=== PATIENT | male | born 1945 | race Caucasian/White ===

== ENCOUNTER 2018-07-10 23:47 | Inpatient (IN) ==
[2018-07-11] MEDS ORDERED: ROCEPHIN 1 GM in NS 50 ML IV ONE (01:22)
[2018-07-11] MEDS ORDERED: DUONEB (A & A) INH ONE (01:22)
[2018-07-11] MEDS ORDERED: ZITHROMAX 500 MG/NS 500 MG/250 ML IVPB IV ONE (01:22)
[2018-07-11] MEDS ORDERED: LASIX IV ONE (01:22)
--- NOTE | 2018-07-11 01:41 | PROVIDER DOCUMENTATION ---
This chart was entered by Raoul Boykin Scribe, acting as scribe for Deann Rodriguez MD. HPI-Respiratory General - General Chief Complaint: Shortness of Breath Stated Complaint: DIFFICULTY BREATHING Time Seen by Provider: 07/10/18 23:53 Source: patient Allergies/Adverse Reactions: Patient Allergies Allergy/AdvReac Type Severity Reaction Status Date / Time Iodinated Contrast- Oral and Allergy Unknown RASH Verified 08/14/17 02:55 IV Dye Home Medications: Home Medication List Medication Instructions Recorded Confirmed Last Taken Type Aspirin 81 mg PO DAILY 08/14/13 08/14/17 08/14/13 08:30 History Atenolol 25 mg PO DAILY 08/14/13 08/14/17 08/14/13 08:30 History Atorvastatin Calcium [Lipitor] 20 mg PO DAILY 08/14/13 08/14/17 08/14/13 08:30 History Baclofen [Lioresal] 10 mg PO TID PRN 08/14/13 08/14/13 08/14/13 08:30 History Docusate Calcium [Stool Softener] 240 mg PO BID 08/14/13 08/14/17 08/14/13 08: 30 History Isosorbide Mononitrate [Isosorbide 30 mg PO HS 08/14/13 08/14/17 08/13/13 20:00 History Mononitrate ER] Levothyroxine [Synthroid] 25 microgm PO DAILY 08/14/13 08/14/17 08/13/13 20:00 History Lorazepam [Ativan] 0.5 mg PO TID 08/14/13 08/14/13 08/13/13 20:00 History Nitroglycerin [Nitroquick] 0.4 mg SL PRN PRN 08/14/13 08/14/17 08/14/13 14:00 History Omeprazole 20 mg PO BID 08/14/13 08/14/13 08/14/13 08:30 History Paroxetine HCl [Paxil] 40 mg PO DAILY 08/14/13 08/14/13 08/13/13 20:00 History Temazepam [Restoril] 30 mg PO HS 08/14/13 08/14/13 08/13/13 20:00 History Hydrocodone/APAP 7.5 mg/325 mg 1 each PO BID PRN PRN #60 tablet 08/17/13 Unknown Rx [[place]-7.5] LISINOpril [Prinivil] 10 mg PO QAM #0 tablet 08/17/13 08/14/17 Unknown Rx Ranolazine E.r. [Ranexa] 500 mg PO Q12H #0 tablet 08/17/13 Unknown Rx - History of Present Illness-Resp Nature of Presenting Problem: 73 yom presents to ed with cc of sob for past 4 days with chills, headache, cough and fever worsening. EMS reports pt O2 sat on arrival was 85 room air. CONTEH frontal 1010 not worse of life. Reports chest heaviness two days ago that resolved with nitro. Hx of bypasses and NE. Quality of Pain: reports: none Severity in ED: reports: moderate Onset/Duration: reports: 4 days ago Timing: reports: still present Review of Systems - Adult - REVIEW OF SYSTEMS - ADULT Constitutional: reports: chills, fever. denies: fatique, weight gain, weight loss Eyes: reports: no symptoms reported Ears, Nose, Mouth & Throat: denies: ear pain, sinus problem, throat pain Cardiovascular: denies: chest pain, irregular heart rate, orthopnea, syncope Respiratory: reports: cough, shortness of breath. denies: pleurisy, wheezing Gastrointestinal: denies: abdominal pain, diarrhea, nausea, vomiting Genitourinary: denies: dysuria, flank pain, frequent UTI's, hematuria, hesitency , urgency Musculoskeletal: denies: bone pain, joint pain, joint swelling, neck pain Integumentary: reports: no symptoms reported Neurological: reports: no symptoms reported Psychiatric: reports: no symptoms reported Endocrine: reports: no symptoms reported Hematologic/Lymphatic: reports: no symptoms reported Allergic/Immunologic: reports: no symptoms reported All Other Systems: Reviewed and Negative Past History - Adult - PAST MEDICAL HISTORY-ADULT Review of Records: reports: Nursing Assessment Review, Medications Reviewed Major Childhood Illnesses: reports: denies history Cardiovascular: reports: cardiac disease, angina, HTN Respiratory: reports: COPD Gastrointestinal: reports: denies history Musculoskeletal: reports: arthritis Neurological: reports: denies history - IMMUNIZATION STATUS Childhood Immunizations: See Nurse Assessment Flu Vaccine: See Nurse Assessment - SOCIAL HISTORY Smoking: other (former) Substance Use: none/never Physical Exam-General - PHYSICAL EXAM-ADULT Initial Vital Signs Reviewed: Yes - CONSTITUTIONAL General Appearance: appears well, alert, mild distress - EYES Eyes: PERRL/EOMI, pink conjunctivae - HEAD, EARS, NOSE, MOUTH & THROAT HENMT: moist mucous membranes, TMs normal, pharynx normal - NECK Neck: non-tender, full range of motion, supple, normal inspection - RESPIRATORY Respiratory: chest non-tender, no pleuratic chest pain, respiratory distress ( O2 dropped down to 83 room air,...pt was placed on 4 lmp NC), crackles ( bilateral bases) - CARDIOVASCULAR Cardiovascular: regular rate, rhythm - GASTROINTESTINAL (ABDOMEN) Abdominal Exam: non tender, soft, no organomegaly, no pulsatile mass - MUSCULOSKELETAL Extremity: normal range of motion, non-tender, normal gait. negative: pedal edema, swelling, tenderness - SKIN Integumentary: normal color, normal turgor, warm/dry - NEUROLOGIC Neurologic: grossly normal - PSYCHIATRIC Psych/Mental Status: normal mood/affect, normal thought content, normal thought process, oriented x 3 Progress - PLAN OF CARE/RESULTS Progress/Plan/Lab Results: Vital Signs - 8 hr 07/10/18 23:48 07/10/18 23:56 07/11/18 01:34 Temperature 100.1 F H Pulse Rate 83 81 72 Respiratory Rate 24 20 20 Blood Pressure 148/86 148/86 O2 Sat by Pulse Oximetry 93 L 94 L 92 L Laboratory Results - last 24 hr 07/11/18 00:36 Troponin T < 0.010 Orders Category Date Time Status Saline Loc NOW Care 07/11/18 00:09 Active CHEST-PORTABLE [RAD] Stat Exams 07/11/18 00:09 Taken BLOOD CULTURE [BLDCUL] Stat Lab 07/11/18 00:09 Ordered CBC WITH DIFF [HEME] Stat Lab 07/11/18 00:36 Results COMPREHENSIVE METABOLIC PANEL [CHEM] Stat Lab 07/11/18 00:36 Received INFLUENZA SCREEN A/B Stat Lab 07/11/18 01:26 Uncollected LACTATE, PLASMA [CHEM] Stat Lab 07/11/18 00:36 Received PRO B-NATRIURETIC PEPTIDE Stat Lab 07/11/18 00:36 Received SPUTUM CULTURE WITH GRAM STAIN [RM] Routine Lab 07/11/18 00:49 Ordered TROPONIN T Stat Lab 07/11/18 00:36 Completed Albuterol 2.5MG/Ipratrop 0.5MG [Duoneb (A & A)] Med 07/11/18 01:22 Discontinued 3 ml INH NOW ONE Azithromycin 500 mg/Ns [Zithromax 500 mg/Ns] Med 07/11/18 01:22 Active 500 mg in 250 ml IV NOW CefTRIAXONE [Rocephin] 1 gm Med 07/11/18 01:22 Active 0.9% Sodium Chloride Inj [Ns] 50 ml IV NOW Furosemide [Lasix] Med 07/11/18 01:22 Discontinued 20 mg IV NOW ONE Aerosol Treatments Routine Oth 07/11/18 01:23 Completed Aerosol Treatments Stat Oth 07/11/18 01:23 Completed Pulse Oximetry Stat Oth 07/11/18 00:09 Active EKG [EKG] Stat Ther 07/11/18 00:10 Ordered Result Diagrams: 07/11/18 00:36 - EKG 1 Time of EKG reading by physician:: 23:56 EKG Read and Signed by:: Salinas Segundo EKG Interpretation (*Must complete 3 of following elements*): Abnormal (lafb) Rate: 81 Rhythm: sinus with sinus arrhythmia [place]: normal QRS: PVC's (occasiona) IA Interval: normal - XRAY 1 XRAY: Bilateral XRAY Study: Chest Impression: Abnormal (bilateral pna and vascular congestion- dr clinton) - CONSULTS/PCP/HOSPITALIST Notification #1 *Consult/PCP/Hospitalist*: Dr. Laguna Time Discussed: 01:40 Consult Disposition: Admit (Accepted without labs being back) Departure - Departure Date of Disposition Decision: 07/11/18 Time of Disposition Decision: 01:40 DIAGNOSIS: Dyspnea, Pneumonia, CHF (congestive heart failure) Disposition: ADMITTED INPATIENT 09 Certified Medical Emergency: Emergent Condition: Stable Referrals and Follow-Ups: UNKNOWN, [Primary Care Provider] - - Critical Care Note This patient required my direct & personal management of CC.: Yes Total Time (mins): 30 Critical Care Statement: This patient required my direct personal management to treat or rule out processes, the absence of which, could potentiallly result in sudden, clinically significant life or limb threatening deterioration. Attestation - Physician/ OXANA Attestation Patient care was provided by Advanced Practice Provider:: No The physician spent face to face time with patient:: Yes Advanced Practice Provider documentation review:: Supervising physician onsite and consulted in the evaluation and care of this patient. The physician did have a face to face encounter with the patient. This chart was documented by the indicated scribe, (Raoul Boykin Scribe) and accurately reflects the services I performed and decisions made by me, Deann Rodriguez MD, as attested by the provider's signature.
[2018-07-11 01:54] LABS: HEMATOCRIT 38.7 % (42.0-52.0); HEMOGLOBIN 12.9 g/dL (14.0-18.0); MCH 31.7 PG (27-31); MCHC 33.3 g/dL (33-37); MCV 95.1 FL (81-99); RBC 4.07 XMIL (4.7-6.1); WBC 12.61 X1000 (4.8-10.8)
[2018-07-11 01:56] LABS: BASO# 0.03 X1000 (0.0-0.2); BASO% 0.2 % (0.0-0.8); EOS# 0.24 X1000 (0.0-0.7); EOS% 1.9 % (0.0-10.0); IMM GRAN% 0.6 % (0.0-0.5); LYMPH# 1.47 X1000 (1.2-3.4); LYMPH% 11.7 % (20.5-51.1); MONO# 1.27 X1000 (0.11-0.59); MONO% 10.1 % (1.7-9.3); MPV 9.2 FL (7.4-10.4); NEUT# 9.53 X1000 (1.4-6.5); NEUT% 75.5 % (42.2-75.2); PLT 366 X1000 (130-400); RDW 12.8 % (11.5-14.5)
[2018-07-11 01:57] LABS: IMM GRAN# 0.07 X1000 (0.0-0.04)
[2018-07-11 02:22] LABS: AGAP 14; ALKALINE PHOSPHATASE 63 U/L (32-122); BUN 15 mg/dL (8-22); CALCIUM 8.5 mg/dL (8.8-10.2); CHLORIDE 100 mmol/L (98-107); COSMO 276; CREATININE 0.7 mg/dL (0.7-1.2); GLUCOSE 130 mg/dL (70-104); GOT 20 U/L (10-34); GPT 17 U/L (10-44); POTASSIUM 4.2 mmol/L (3.5-5.1); SODIUM 137 mmol/L (136-145); TCO2 23 mmol/L (25-35); TOTAL PROTEIN 7.4 g/dL (6.3-8.3)
[2018-07-11] MEDS ORDERED: TYLENOL PO ONE ×3 (02:28→19:43)
[2018-07-11 02:52] LABS: INFLUENZA A NEGATIVE (NEGATIVE); INFLUENZA B NEGATIVE (NEGATIVE)
--- NOTE | 2018-07-11 02:56 | EKG Report ---
Test Performed on : 07/10/2018 11:56:28 PM Test Reason : CP Blood Pressure : / mmHG Vent. Rate : 081 BPM Atrial Rate : 081 BPM P-R Int : 174 ms QRS Dur : 106 ms QT Int : 378 ms P-R-T Axes : -12 -53 070 degrees QTc Int : 439 ms Sinus rhythm. with sinus arrhythmia. with occasional premature ventricular complexes. Left anterior fascicular block Abnormal ECG When compared with ECG of 14-AUG-2017 05:24, premature ventricular complexes. are now present OR interval has decreased Vent. rate has increased BY 28 BPM T wave inversion no longer evident in Lateral leads Unconfirmed Result
--- NOTE | 2018-07-11 05:42 | Diag Imaging Result Doc PS360 ---
EXAM: CHEST-PORTABLE HISTORY: cough TECHNIQUE: Chest single view COMPARISON: 08/23/2017 FINDINGS: Poor inspiratory effort. Sternal wires and surgical clips are present. No cardiomegaly. No vascular distention. There may be tiny pleural effusions. There is basilar atelectasis with questionable underlying infiltrates. IMPRESSION: Basilar atelectasis with questionable tiny underlying infiltrates and tiny pleural effusions. Electronically signed by Junaid Zavala 07/11/2018 5:40 AM
[2018-07-11] MEDS ORDERED: FLU VACCINE IM ONE (12:04)
[2018-07-11] MEDS ORDERED: ZOFRAN IV PRN (15:22)
[2018-07-11] MEDS: DUONEB (A & A) INH PRN ×2 (19:25→23:59)
[2018-07-11] MEDS ORDERED: BUSPAR PO PRN (19:53)
[2018-07-11] MEDS: ZITHROMAX PO SCH (20:42)
[2018-07-12] MEDS: ROCEPHIN 1 GM in NS 50 ML IV SCH (01:20)
--- NOTE | 2018-07-12 02:17 | HISTORY AND PHYSICAL ---
CHIEF COMPLAINT: Shortness of breath. HISTORY OF PRESENT ILLNESS: This is a 73-year-old gentleman with a history of prostate cancer greater than 20 years ago, CAD status post coronary artery bypass graft with subsequent PCI, prior CVA and hypothyroid. He presents to the emergency room complaining of 4 days of increasing shortness of breath along with chills, headache, cough, and a fever with a maximum of 101.8 prior to coming to the emergency room. On EMS arrival he did have a room air saturation of 85%, which increased to 93% on 4 L nasal cannula. He did state that he had chest heaviness 2 days ago and it did resolve with nitroglycerin. He has had no further recurrence. Chest x-ray revealed bilateral basilar atelectasis with infiltrates. Blood cultures were obtained. He was given azithromycin and Rocephin, and he is being admitted for further evaluation and treatment. PAST MEDICAL HISTORY: Prostate cancer greater than 20 years ago, coronary artery disease status post coronary artery bypass graft in 2006 with subsequent PCI stents, hypothyroid, prior CVA. PAST SURGICAL HISTORY: Coronary bypass graft, knee surgery, and back surgery. SOCIAL HISTORY: He denies alcohol, tobacco, or illicit drug use. ALLERGIES: Iodine contrast oral and IV, which cause a rash. HOME MEDICATIONS: A list will be obtained by the nursing staff and once confirmed for accuracy we will review and start it as appropriate. REVIEW OF SYSTEMS: Discussed with the patient with pertinent positives stated in the HPI. He denied any syncope, dizziness, any palpitations, a productive cough, recent weight loss or weight gain, any nausea, vomiting, diarrhea, constipation, black or bloody vomitus or stools, hematuria, dysuria, frequency, urgency. PHYSICAL EXAMINATION: GENERAL: This is a 73-year-old gentleman who is sitting up in the bed in no distress. VITAL SIGNS: Blood pressure is 124/74, with a heart rate of 68, respirations 20, temperature is 97.7 degrees oral, with O2 saturation of 96%-97% on 4 L nasal cannula. EYES: Pupils are equal, round, and reactive to light. EOMs are intact. Sclerae are anicteric. HEENT: Head is normocephalic and atraumatic. Mucous membranes are moist. NECK: Supple with trachea midline. CARDIOVASCULAR: Regular rate and rhythm. S1 and S2 appreciated. He has no lower extremity edema with peripheral pulses palpable x4 extremities. PULMONARY: Breath sounds are diminished in the bases with no increased work of breathing noted. GASTROINTESTINAL: Abdomen is soft, nontender, and nondistended with bowel sounds in all 4 quadrants. GENITOURINARY: He has no CVA nor suprapubic tenderness. SKIN: Warm and dry. NEUROLOGIC: He is alert oriented x3. LABORATORY DATA: WBC is 12.6 with hemoglobin 12.9, hematocrit 38.7, and platelets of 366,000. Sodium is 137, potassium 4.2, BUN 15, creatinine 0.7 with a glucose of 130. Troponin is negative. Flu A and B are negative. Blood cultures are pending. Chest x-ray revealed bilateral basilar atelectasis with tiny underlying infiltrates and tiny pleural effusions. ASSESSMENT AND PLAN: 1. Bilateral lower lobe pneumonia. Blood cultures were obtained in the emergency room. He was given Rocephin and azithromycin which we will continue. Will give every 4 hours as needed. Obtain a sputum culture. Incentive spirometer. 2. Leukocytosis secondary to #1 as stated above. We will repeat labs in the morning. 3. Coronary artery disease. We will identify his home medications and continue these as is appropriate. 4. Hypothyroid. We will identify his medicines and continue. 5. History of prostate cancer. Aware. 6. For deep venous thrombosis prophylaxis we will use Lovenox, and for gastrointestinal prophylaxis omeprazole. Further treatments pending hospital course. Dictated by MICKIE Horton for Efraín Laguna MD This chart was documented by, MICKIE Horton and accurately reflects the services performed, treatment plan and medical decisions as attested by the providers signature Efraín Laguna MD. cc: MICKIE Horton MD
[2018-07-12] MEDS: DUONEB (A & A) INH PRN ×6 (03:22→23:25)
[2018-07-12] MEDS: TYLENOL PO PRN ×2 (03:41→12:32)
--- NOTE | 2018-07-12 04:24 | HISTORY AND PHYSICAL ---
ADDENDUM: Patient seen and examined by myself. Full note dictated and discussed with nurse practitioner. Patient presented to the hospital with a several day history of cough, congestion, and shortness of breath. Was noted to have a mild fever. Blood pressures were elevated. We will admit to the hospital, place on antibiotics, and we will follow. Please see full note. cc: Efraín Laguna MD
[2018-07-12 07:19] LABS: BASO# 0.02 X1000 (0.0-0.2); BASO% 0.2 % (0.0-0.8); EOS# 0.16 X1000 (0.0-0.7); EOS% 1.7 % (0.0-10.0); HEMATOCRIT 37.1 % (42.0-52.0); HEMOGLOBIN 12.4 g/dL (14.0-18.0); IMM GRAN# 0.03 X1000 (0.0-0.04); IMM GRAN% 0.3 % (0.0-0.5); LYMPH% 16.6 % (20.5-51.1); MCH 31.7 PG (27-31); MCHC 33.4 g/dL (33-37); MCV 94.9 FL (81-99); MONO# 1.26 X1000 (0.11-0.59); MONO% 13.1 % (1.7-9.3); MPV 9.3 FL (7.4-10.4); NEUT# 6.57 X1000 (1.4-6.5); NEUT% 68.1 % (42.2-75.2); PLT 363 X1000 (130-400); RBC 3.91 XMIL (4.7-6.1); RDW 12.8 % (11.5-14.5); WBC 9.64 X1000 (4.8-10.8)
[2018-07-12 07:46] LABS: AGAP 16; ALBUMIN 3.2 g/dL (3.5-5.0); ALKALINE PHOSPHATASE 64 U/L (32-122); BUN 10 mg/dL (8-22); CALCIUM 8.2 mg/dL (8.8-10.2); CHLORIDE 99 mmol/L (98-107); COSMO 280; CREATININE 0.6 mg/dL (0.7-1.2); ESTIMATED GFR > 60; GLUCOSE 126 mg/dL (70-104); GOT 21 U/L (10-34); GPT 20 U/L (10-44); MAGNESIUM 1.4 mg/dL (1.5-2.7); POTASSIUM 3.4 mmol/L (3.5-5.1); SODIUM 140 mmol/L (136-145); TCO2 25 mmol/L (25-35); TOTAL PROTEIN 6.8 g/dL (6.3-8.3)
[2018-07-12] MEDS ORDERED: MAGNESIUM SULFATE 2 GM/S.W.I. 2 GM/50 ML IVPB IV ONE (08:05)
[2018-07-12] MEDS: LOVENOX SUBQ SCH (08:41)
[2018-07-12] MEDS: PERCOCET-5 PO PRN ×2 (08:42→20:58)
[2018-07-12] MEDS: PAXIL PO SCH (08:42)
--- NOTE | 2018-07-12 18:33 | PROGRESS NOTE ---
DATE: 07/12/2018 SUBJECTIVE: The patient notes that he is feeling a little bit better. He states he is not quite back to his baseline. Denies any chest pains or palpitations. OBJECTIVE: Vital Signs: Temperature 98, pulse 82, respiratory 20, blood pressure 152/66. General: The patient is awake and alert, very pleasant to talk with. He is in minimal respiratory distress. HEENT: Normocephalic. Neck: Supple. CARDIOVASCULAR: Regular rate. Chest: Clear. Abdomen: Soft. Extremities: Moves all extremities. ASSESSMENT: 1. Bilateral pneumonia. 2. Leukocytosis. 3. Known coronary artery disease. 4. Hypothyroidism. 5. Hypomagnesemia. 6. Hypokalemia. PLAN: Will replace his potassium and magnesium. White count has improved. Will continue Rocephin and azithromycin. If he continues to improve, he may be able to discharge over the next 1 or 2 days. cc: Efraín Laguna MD
[2018-07-12] MEDS: ZITHROMAX PO SCH (20:58)
[2018-07-13] MEDS: ROCEPHIN 1 GM in NS 50 ML IV SCH (01:19)
[2018-07-13] MEDS: DUONEB (A & A) INH PRN ×4 (05:49→19:32)
[2018-07-13 06:58] LABS: BASO# 0.02 X1000 (0.0-0.2); BASO% 0.2 % (0.0-0.8); EOS# 0.25 X1000 (0.0-0.7); EOS% 2.3 % (0.0-10.0); HEMATOCRIT 40.4 % (42.0-52.0); HEMOGLOBIN 13.2 g/dL (14.0-18.0); IMM GRAN# 0.04 X1000 (0.0-0.04); IMM GRAN% 0.4 % (0.0-0.5); LYMPH# 1.93 X1000 (1.2-3.4); LYMPH% 18.1 % (20.5-51.1); MCH 31.1 PG (27-31); MCHC 32.7 g/dL (33-37); MCV 95.3 FL (81-99); MONO# 1.09 X1000 (0.11-0.59); MONO% 10.2 % (1.7-9.3); MPV 9.4 FL (7.4-10.4); NEUT# 7.35 X1000 (1.4-6.5); NEUT% 68.8 % (42.2-75.2); PLT 357 X1000 (130-400); RBC 4.24 XMIL (4.7-6.1); WBC 10.68 X1000 (4.8-10.8)
[2018-07-13 07:09] LABS: AGAP 14; ALBUMIN 3.1 g/dL (3.5-5.0); ALKALINE PHOSPHATASE 70 U/L (32-122); BUN 11 mg/dL (8-22); CALCIUM 8.6 mg/dL (8.8-10.2); CHLORIDE 96 mmol/L (98-107); COSMO 275; CREATININE 0.7 mg/dL (0.7-1.2); ESTIMATED GFR > 60; GLUCOSE 156 mg/dL (70-104); GOT 25 U/L (10-34); GPT 27 U/L (10-44); MAGNESIUM 1.8 mg/dL (1.5-2.7); POTASSIUM 3.4 mmol/L (3.5-5.1); SODIUM 136 mmol/L (136-145); TCO2 26 mmol/L (25-35); TOTAL PROTEIN 7.9 g/dL (6.3-8.3)
[2018-07-13] MEDS: LOVENOX SUBQ SCH (11:13)
[2018-07-13] MEDS: PAXIL PO SCH (11:13)
[2018-07-13] MEDS: PERCOCET-5 PO PRN (11:36)
[2018-07-13] MEDS: TYLENOL PO PRN ×2 (16:01→22:21)
[2018-07-13] MEDS: ROBITUSSIN-AC PO PRN ×2 (16:28→20:55)
[2018-07-13] MEDS: ZITHROMAX PO SCH (20:55)
[2018-07-14] MEDS: DUONEB (A & A) INH PRN ×6 (00:08→23:03)
[2018-07-14] MEDS: ROCEPHIN 1 GM in NS 50 ML IV SCH (01:05)
--- NOTE | 2018-07-14 03:25 | PROGRESS NOTE ---
DATE: 07/13/2018 SUBJECTIVE: Patient notes he is starting to feel a little bit stronger. He is having a productive cough. Denies any fevers or chills. PHYSICAL EXAMINATION: Vital Signs: Temperature 98.6 degrees, pulse 79, respiratory 20, BP 130/50. General: Patient is awake, alert, elderly male who is currently in mild respiratory distress though very pleasant to talk with. HEENT: Normocephalic. Neck: Supple. CARDIOVASCULAR: Regular rate. Chest: Clear, nonlabored. No crackles. Good air movement. Abdomen: Soft, nondistended. Extremities: Moves all extremities. ASSESSMENT: 1. Bilateral lower lobe pneumonia, improved. 2. Leukocytosis, improved. 3. Coronary artery disease. 4. Hypothyroidism. PLAN: We will continue patient in the hospital. We will replace magnesium. Leukocytosis has improved. Continue antibiotics and hopefully home soon. cc: Efraín Laguna MD
[2018-07-14] MEDS ORDERED: COLACE PO PRN (06:59)
[2018-07-14] MEDS: LOVENOX SUBQ SCH (10:21)
[2018-07-14] MEDS: LIPITOR PO SCH (10:21)
[2018-07-14] MEDS: PRILOSEC PO SCH ×2 (10:21→21:15)
[2018-07-14] MEDS: OMNICEF PO SCH ×2 (10:21→21:15)
[2018-07-14] MEDS: PLAVIX PO SCH (10:21)
[2018-07-14] MEDS: PRINIVIL PO SCH (10:21)
[2018-07-14] MEDS: PAXIL PO SCH (10:22)
[2018-07-14] MEDS: ASPIRIN PO SCH (10:22)
[2018-07-14] MEDS: SYNTHROID PO SCH (10:22)
[2018-07-14] MEDS: HYDROCHLOROTHIAZIDE PO SCH (14:10)
[2018-07-14] MEDS: TOPROL XL PO SCH (14:10)
[2018-07-14] MEDS: LASIX IV SCH (14:10)
[2018-07-14] MEDS: ROBITUSSIN-AC PO PRN (19:15)
[2018-07-14] MEDS: ZITHROMAX PO SCH (21:15)
[2018-07-14] MEDS: FLOMAX PO SCH (21:16)
[2018-07-14] MEDS: IMDUR PO SCH (21:16)
[2018-07-14] MEDS: TYLENOL PO PRN (21:18)
--- NOTE | 2018-07-15 00:51 | PROGRESS NOTE ---
DATE: 07/14/2018 SUBJECTIVE: Patient notes that he is feeling a little bit better. Still having lots of cough and congestion. Denies any fevers or chills. The patient has not really been out of bed. States he is still having significantly productive cough. The cough does not have any blood in it. Still having low-grade fevers. PHYSICAL EXAMINATION: Vital Signs: Temperature 98.1 degrees, pulse 81, respiratory 20, BP 117/58. General: Patient is awake, alert. He is lying in the bed. He is very comfortable. Currently, he is pleasant to talk with. HEENT: Normocephalic. Neck: Supple. CARDIOVASCULAR: Regular rate. Chest: Decreased breath sounds. Positive crackles throughout. Abdomen: Soft, nondistended. Extremities: Moves all extremities. ASSESSMENT: 1. Bilateral lower lobe pneumonia. 2. Hiatal hernia. 3. Leukocytosis. 4. Known coronary artery disease. 5. Hypothyroidism. 6. Hypomagnesemia. PLAN: We will replace his magnesium. Continue antibiotics. We will continue oxygen as needed. We will continue to check his saturations. We will continue Acapella treatments as well as incentive spirometry. Replace potassium as well as magnesium and we will follow. cc: Efraín Laguna MD
[2018-07-15] MEDS: LASIX IV SCH ×2 (01:05→13:43)
[2018-07-15] MEDS: DUONEB (A & A) INH PRN ×6 (03:23→23:52)
[2018-07-15] MEDS: TYLENOL PO PRN ×3 (04:03→21:34)
[2018-07-15] MEDS: SYNTHROID PO SCH (06:02)
[2018-07-15] MEDS: LIPITOR PO SCH (09:29)
[2018-07-15] MEDS: LOVENOX SUBQ SCH (09:29)
[2018-07-15] MEDS: PLAVIX PO SCH (09:30)
[2018-07-15] MEDS: OMNICEF PO SCH ×2 (09:31→20:33)
[2018-07-15] MEDS: HYDROCHLOROTHIAZIDE PO SCH (09:31)
[2018-07-15] MEDS: ASPIRIN PO SCH (09:32)
[2018-07-15] MEDS: PAXIL PO SCH (09:32)
[2018-07-15] MEDS: PRINIVIL PO SCH (09:32)
[2018-07-15] MEDS: TOPROL XL PO SCH (09:32)
[2018-07-15] MEDS: PRILOSEC PO SCH ×2 (09:32→20:33)
[2018-07-15] MEDS: MUCOMYST 20% INH SCH ×2 (11:39→19:30)
--- NOTE | 2018-07-15 13:21 | Diag Imaging Result Doc PS360 ---
CHEST-2 VIEWS - 07/15/2018 INDICATION: hypoxia COMPARISON: 07/11/2018 FINDINGS: There is worsening interstitial infiltrate bilaterally throughout the lung bases. Stable CABG changes and cardiomegaly. No pneumothorax or large pleural effusion. There are electrodes in the spinal canal. IMPRESSION: Worsening, extensive interstitial infiltrates in the lung bases. Most likely representing pulmonary edema. Electronically signed by Zay Taylor 07/15/2018 1:18 PM
[2018-07-15] MEDS: IMDUR PO SCH (20:33)
[2018-07-15] MEDS: FLOMAX PO SCH (20:33)
[2018-07-15] MEDS: ZITHROMAX PO SCH (20:34)
--- NOTE | 2018-07-15 21:20 | EKG Report ---
Test Performed on : 07/15/2018 7:09:35 PM Test Reason : SOB Blood Pressure : / mmHG Vent. Rate : 078 BPM Atrial Rate : 078 BPM P-R Int : 184 ms QRS Dur : 122 ms QT Int : 418 ms P-R-T Axes : 000 -64 091 degrees QTc Int : 476 ms Sinus rhythm. with occasional premature ventricular complexes. and premature atrial complexes. Left anterior fascicular block Abnormal QRS-T angle, consider primary T wave abnormality Abnormal ECG When compared with ECG of 15-JUL-2018 19:08, (Unconfirmed) premature atrial complexes. are now present Confirmed by Stevie Watkins MD ([id number]) on 08/06/2018 9:56:53 AM
--- NOTE | 2018-07-15 23:19 | PROGRESS NOTE ---
DATE: 07/15/2018 SUBJECTIVE: Patient this morning notes that he is starting to feel a little bit better. States his cough seems better although it is still productive. Still having some shortness of breath and generalized weakness. PHYSICAL EXAMINATION: Vital Signs: Temperature 97.9 degrees, pulse 82, respiratory 20, BP 115/62. General: Patient is awake. He is currently in mild respiratory distress. HEENT: Normocephalic. Neck: Supple. Cardiovascular: Regular rate. Chest: Positive rhonchi throughout. No current crackles. No wheezing. Abdomen: Soft, nondistended. Extremities: Moves all extremities. ASSESSMENT: 1. Bilateral lower lobe pneumonia. Continues with a productive cough. 2. Hiatal hernia. 3. Leukocytosis, resolved. 4. Hypokalemia. 5. Hypomagnesemia. PLAN: We will continue patient in the hospital. Continue to follow, antibiotics, breathing treatments, oxygen. We will add Mucomyst. Continue IV Lasix today. Further orders as needed. cc: Efraín Laguna MD
[2018-07-16] MEDS: DUONEB (A & A) INH PRN ×3 (03:10→11:15)
[2018-07-16] MEDS: TYLENOL PO PRN (04:48)
[2018-07-16] MEDS: SYNTHROID PO SCH (06:04)
[2018-07-16 07:28] LABS: HEMATOCRIT 34.6 % (42.0-52.0); HEMOGLOBIN 11.4 g/dL (14.0-18.0); MCH 30.6 PG (27-31); MCHC 32.9 g/dL (33-37); MPV 9.5 FL (7.4-10.4); RBC 3.72 XMIL (4.7-6.1); RDW 12.6 % (11.5-14.5); WBC 11.97 X1000 (4.8-10.8)
[2018-07-16] MEDS: MUCOMYST 20% INH SCH ×2 (07:34→19:24)
[2018-07-16 07:46] LABS: ESTIMATED GFR > 60
[2018-07-16 07:52] LABS: AGAP 15; ALBUMIN 2.6 g/dL (3.5-5.0); ALKALINE PHOSPHATASE 64 U/L (32-122); BUN 20 mg/dL (8-22); CALCIUM 8.1 mg/dL (8.8-10.2); CHLORIDE 88 mmol/L (98-107); COSMO 265; CREATININE 0.9 mg/dL (0.7-1.2); GLUCOSE 161 mg/dL (70-104); GOT 35 U/L (10-34); GPT 43 U/L (10-44); MAGNESIUM 1.7 mg/dL (1.5-2.7); POTASSIUM 3.2 mmol/L (3.5-5.1); SODIUM 129 mmol/L (136-145); TCO2 26 mmol/L (25-35); TOTAL PROTEIN 7.1 g/dL (6.3-8.3)
[2018-07-16] MEDS: LIPITOR PO SCH (09:42)
[2018-07-16] MEDS: PRILOSEC PO SCH ×2 (09:43→20:48)
[2018-07-16] MEDS: PRINIVIL PO SCH (09:43)
[2018-07-16] MEDS: PLAVIX PO SCH (09:43)
[2018-07-16] MEDS: HYDROCHLOROTHIAZIDE PO SCH (09:43)
[2018-07-16] MEDS: TOPROL XL PO SCH (09:43)
[2018-07-16] MEDS: OMNICEF PO SCH (09:43)
[2018-07-16] MEDS: ASPIRIN PO SCH (09:43)
[2018-07-16] MEDS: PAXIL PO SCH (09:43)
[2018-07-16] MEDS: LOVENOX SUBQ SCH ×2 (09:43→14:41)
[2018-07-16] MEDS ORDERED: BUSPAR PO PRN (12:48)
[2018-07-16] MEDS ORDERED: COLACE PO PRN (12:48)
[2018-07-16] MEDS ORDERED: DUONEB (A & A) INH PRN (12:49)
[2018-07-16] MEDS: PERCOCET-5 PO PRN ×2 (12:54→20:54)
[2018-07-16] MEDS ORDERED: TYLENOL PO PRN (12:55)
[2018-07-16] MEDS ORDERED: LASIX IV ONE (13:41)
[2018-07-16] MEDS ORDERED: VANCOMYCIN IV PER PHARMACY MISC SCH (13:45)
[2018-07-16 13:48] LABS: ALLEN TEST YES; BE 5.5 mmoll (-3.0-3.0); BLOOD TYPE ARTERIAL; HCO3-(ACT) 29.2 mmoll (20.0-26.0); METHB 0.5 % (0.0-1.5); O2HB 97.8 % (95.0-99.0); PCO2(98.6) 37 mmHg (35-45); PO2(98.6) 171 mmHg (60-100); SAMPLE BLOOD; SAO2 100.8 % (95.0-100.0); THB 11.4 g/dL (11.5-17.4)
[2018-07-16 13:49] LABS: MODALITY VENTIMASK
[2018-07-16] MEDS: MAXIPIME 2 GM in NS 100 ML IV SCH (15:07)
[2018-07-16] MEDS: DUONEB (A & A) INH SCH ×3 (15:45→22:38)
[2018-07-16] MEDS ORDERED: VANCOMYCIN 2 GM in NS 500 ML IV ONE (16:00)
--- NOTE | 2018-07-16 18:26 | Diag Imaging Result Doc PS360 ---
CHEST-PORTABLE - 07/16/2018 INDICATION: SOB COMPARISON: 07/15/2018 FINDINGS: Stable surgical changes to the heart. Stable cardiomegaly and pulmonary vascular congestion. There is improvement in the bilateral basilar infiltrates. No new infiltrates. IMPRESSION: Improvement in the bilateral ill-defined infiltrates. Electronically signed by Zay Taylor 07/16/2018 6:24 PM
--- NOTE | 2018-07-16 19:01 | PROGRESS NOTE ---
DATE: 07/16/2018 SUBJECTIVE: Patient notes that he had a rough night last night. Had to increase his oxygen. He had increased work of breathing, increased shortness of breath. Denies any chest pains currently. Denies any palpitations. PHYSICAL EXAMINATION: Vital Signs: Temp 97.7, pulse 85, respiratory 20, BP 110 /62. General: Patient is awake. He is in no current distress this morning. States he is feeling better. General: He is awake, alert. He is in mild current respiratory distress. He is very pleasant to talk with. He does appear to be slightly improved from yesterday's exam. HEENT: Normocephalic. Neck: Supple. Cardiovascular: Regular rate. Chest: Positive rhonchi throughout. No current crackles. No wheezing. Decreased but equal breath sounds. Abdomen: Soft, nondistended. Extremities: Moves all extremities. ASSESSMENT: 1. Bilateral lower lobe pneumonia. 2. Hypoxic respiratory failure. 3. Elevated D-dimer at 1.2. 4. Hypomagnesemia, resolved. 5. Hypokalemia. 6. Hyponatremia. 7. Hypothyroidism. 8. History of prostate cancer. 9. Hiatal hernia. PLAN: We will transfer patient to [facility] for a V/Q scan. Place him on Lovenox until which time this can be done. Will have Pulmonology see him regarding his pulmonary issues. The family would prefer to have Pulmonology input. We will replace his potassium. Follow his sodium. Further orders as needed. cc: Efraín Laguna MD MTDD
--- NOTE | 2018-07-16 19:48 | Diag Imaging Result Doc PS360 ---
CT THORAX W/O CONTRAST - 07/16/2018 INDICATION: pneumonia/pulmonary edema COMPARISON: Chest x-ray from earlier FINDINGS: There is mild cardiomegaly. Anemia is present. There are CABG changes. No adenopathy. Upper abdominal images are normal. There is severe, coarse peripheral interstitial pulmonary fibrosis with basilar predominance. There is significant varicoid bronchiectasis in the lung bases. There are severe peripheral mixed infiltrates bilaterally. There are moderate degenerative changes of the spine. No acute or suspicious bony lesion. IMPRESSION: Advanced pulmonary fibrosis. Bilateral interstitial pulmonary infiltrates. Likely represents usual interstitial pneumonitis. Consider pulmonary consultation. This exam was performed using automated exposure control, adjustment of mA or kV according to patient size, and/or use of iterative reconstruction technique Electronically signed by Zay Taylor 07/16/2018 7:45 PM
[2018-07-16 19:50] LABS: CK INDEX 2.6 (0.0-2.5); CK-MB 5.38 ng/mL (0.0-5.0)
[2018-07-16] MEDS: CULTURELLE PO SCH (20:48)
[2018-07-16] MEDS: IMDUR PO SCH (20:48)
[2018-07-16] MEDS: FLOMAX PO SCH (20:48)
--- NOTE | 2018-07-16 20:56 | PULMONOLOGY CONSULTATION ---
DATE: 07/16/2018 PULMONARY CONSULTATION: REQUESTING PHYSICIAN: Dr. Laguna. REASON FOR CONSULTATION: Bilateral pneumonia and hypoxemia. HISTORY OF PRESENT ILLNESS: Mr. Mandujano is a 73-year-old with limited tobacco history, extensive coronary artery disease, and significant gastroesophageal reflux who presented to [facility] on 07/10/2018 with a several day history of chills, cough, increasing shortness of breath with acute hypoxemic respiratory failure. The patient reports frequent episodes of reflux and frequently will eat before going to bed. The patient reports choking on food or liquids on a near daily basis. He has had at least 2 strokes in the past which affected his speech and right upper extremity. He has not improved. last night he had increased shortness of breath and was transferred in anticipation of a V/Q scan. PAST MEDICAL HISTORY: Problem List: 1. Extensive coronary artery disease history with prior myocardial infarctions, prior bypass grafting, and prior stenting. 2. Strokes x2 as per HPI. 3. Prostate cancer without evidence of recurrence. 4. Back pain with neurostimulator placement. 5. Status post knee surgery. 6. Hiatal hernia. 7. Gastroesophageal reflux. 8. Truncal obesity. 9. Periodic angina. SOCIAL HISTORY: Patient previously smoked cigars but not on a daily basis. No significant alcohol use. FAMILY HISTORY: Positive for heart disease. REVIEW OF SYSTEMS: Notable for cough, shortness of breath, fevers, chills, and sweats. PHYSICAL EXAMINATION: General: Reveals an overweight white male with truncal obesity resting comfortably and in no distress. Vital Signs: Blood pressure 122/70, heart rate 79, respiratory rate 20, oxygen saturation 95% on Venturi mask. HEENT: Pupils are equal and reactive. Oropharynx is clear. Neck: Supple. Chest: Reveals bibasilar crackles and rhonchi. Cardiac: S1-S2. Abdomen: Obese and soft. Extremities: Reveal trace edema. Neurologic: Cranial nerves 2 through 12 are grossly intact. LABORATORIES: Initial chest x-ray on admission 07/11/2018 revealed basilar atelectasis with possible small infiltrates. Chest x-ray 07/15/2018 revealed significant worsening of bibasilar infiltrates. Chest x-ray today reveals slight improvement in bibasilar infiltrates. CT scan of the thorax today reveals a component of fibrosis along with bibasilar infiltrates. IMPRESSION: A 73-year-old with bibasilar pneumonia. Possibility of pulmonary fibrosis with bibasilar infiltrates is suggested on CT scan, but he did have significant worsening in the basilar infiltrates on chest x-ray suggesting this is more of an acute process. The patient has frequent coughing with eating, and I suspect that he is having intermittent aspiration. I will schedule him for a modified barium swallow. Patient's D-dimer is slightly elevated, and with is at increased oxygen requirements I agree with plans for a V/Q scan. Although it is likely to be indeterminate. RECOMMENDATIONS: 1. Broad-spectrum antibiotics for pneumonia. Agree with cefepime and vancomycin. 2. Modified barium swallow. 3. Anticipate V/Q scan. 4. Overall prognosis is guarded. The patient has requested to be do not resuscitate, and his wishes will be followed. cc: Mario Wu MD
[2018-07-16] MEDS ORDERED: OMNICEF PO SCH (21:00)
[2018-07-16] MEDS ORDERED: ZITHROMAX PO SCH (21:00)
[2018-07-17] MEDS: MAXIPIME 2 GM in NS 100 ML IV SCH ×2 (03:20→15:12)
[2018-07-17] MEDS: DUONEB (A & A) INH SCH ×6 (03:51→22:55)
[2018-07-17 05:28] LABS: ALLEN TEST YES; BE 3.1 mmoll (-3.0-3.0); BLOOD TYPE ARTERIAL; HCO3-(ACT) 27.4 mmoll (20.0-26.0); PCO2(98.6) 38 mmHg (35-45); PO2(98.6) 110 mmHg (60-100); SAMPLE BLOOD; pH(98.6) 7.46 (7.35-7.45)
[2018-07-17 05:29] LABS: MODALITY VENTIMASK
[2018-07-17] MEDS: SYNTHROID PO SCH (06:02)
[2018-07-17 06:30] LABS: BASO# 0.02 X1000 (0.0-0.2); BASO% 0.2 % (0.0-0.8); EOS# 0.18 X1000 (0.0-0.7); HEMOGLOBIN 11.3 g/dL (14.0-18.0); IMM GRAN# 0.02 X1000 (0.0-0.04); IMM GRAN% 0.2 % (0.0-0.5); LYMPH# 0.89 X1000 (1.2-3.4); LYMPH% 9.8 % (20.5-51.1); MCH 31.1 PG (27-31); MCHC 33.2 g/dL (33-37); MCV 93.7 FL (81-99); MONO# 0.84 X1000 (0.11-0.59); MONO% 9.2 % (1.7-9.3); MPV 9.5 FL (7.4-10.4); NEUT# 7.17 X1000 (1.4-6.5); NEUT% 78.6 % (42.2-75.2); PLT 395 X1000 (130-400); RBC 3.63 XMIL (4.7-6.1); RDW 12.5 % (11.5-14.5); WBC 9.12 X1000 (4.8-10.8)
--- NOTE | 2018-07-17 07:08 | Diag Imaging Result Doc PS360 ---
EXAM: CHEST-PORTABLE HISTORY: dyspnea TECHNIQUE: Portable chest single view COMPARISON: 07/16/2018 FINDINGS: Poor inspiratory effort. There are sternal wires and surgical clips. The heart is not enlarged. There is vascular distention with infiltrates in the lower lungs. Questionable tiny pleural effusions. IMPRESSION: No significant interval change. Electronically signed by Junaid Zavala 07/17/2018 7:06 AM
[2018-07-17 07:12] LABS: ESTIMATED GFR > 60
[2018-07-17 07:15] LABS: AGAP 14; ALB/GLOB RATIO 0.7; ALBUMIN 2.8 g/dL (3.5-5.0); ALKALINE PHOSPHATASE 59 U/L (32-122); BUN 16 mg/dL (8-22); CALCIUM 8.5 mg/dL (8.8-10.2); CHLORIDE 88 mmol/L (98-107); COSMO 263; CREATININE 0.7 mg/dL (0.7-1.2); GLUCOSE 152 mg/dL (70-104); GOT 36 U/L (10-34); GPT 47 U/L (10-44); POTASSIUM 3.4 mmol/L (3.5-5.1); SODIUM 129 mmol/L (136-145); TCO2 27 mmol/L (25-35); TOTAL BILIRUBIN 0.76 mg/dL (0.20-1.00); TOTAL PROTEIN 6.8 g/dL (6.3-8.3)
[2018-07-17] MEDS: MUCOMYST 20% INH SCH ×2 (07:36→19:15)
[2018-07-17] MEDS ORDERED: HYDROCHLOROTHIAZIDE PO SCH (09:00)
[2018-07-17] MEDS ORDERED: LOVENOX SUBQ SCH (09:00)
[2018-07-17] MEDS: LIPITOR PO SCH (09:06)
[2018-07-17] MEDS: PLAVIX PO SCH (09:07)
[2018-07-17] MEDS: ASPIRIN PO SCH (09:07)
[2018-07-17] MEDS: TOPROL XL PO SCH ×2 (09:07→09:10)
[2018-07-17] MEDS: CULTURELLE PO SCH ×2 (09:07→20:12)
[2018-07-17] MEDS: PAXIL PO SCH (09:07)
[2018-07-17] MEDS: PRILOSEC PO SCH ×2 (09:07→20:12)
[2018-07-17] MEDS: PRINIVIL PO SCH ×2 (09:07→09:09)
[2018-07-17] MEDS: POTASSIUM CHLORIDE 20 MEQ/SWI 20 MEQ/100 ML IVPB IV SCH ×2 (10:21→16:09)
--- NOTE | 2018-07-17 12:17 | CARDIOLOGY CONSULTATION ---
DATE: 07/17/2018 REASON FOR CONSULTATION: Episode of syncope. HISTORY OF PRESENT ILLNESS: Mr. Mandujano is a 73-year-old white male with a history of coronary artery disease and coronary artery bypass grafting who presented for evaluation on the 07/11/2018 for shortness of breath. At that time, he was suspected to have a pneumonia and was admitted due to his history of COPD and pneumonia. Since that time, he has been treated with antibiotics and breathing treatments. Yesterday he was in his usual state of health, and it sounds like he was sitting on the side of the bed or possibly on his bedside commode. He reportedly was feeling dizzy. His blood pressure was 127/71 at that time, pulse rate 85, O2 saturation was 92%. He sat on the side of bed for around 10 minutes or so and was being assisted to the bedside commode. After around a couple of minutes on the bedside commode, he became very short of breath. He stiffened, his head went back and his eyes rolled upwards. The patient slumped forward. A CAT call was performed at that time. The patient does not really have any sort of a memory of that event. He denied any pain occurring at the time of the event. He does have a history of coronary artery disease, followed by Dr. Mendoza over in [place]. He has not had an episode since. His telemetry strips during the course of this hospitalization have shown occasional PVCs. No significant ventricular arrhythmias or other significant arrhythmias have been identified. PAST MEDICAL HISTORY: 1. Significant for coronary artery disease with coronary artery bypass grafting. His last cardiac catheterization on file with us is in 2013. At that time, the LAD, circumflex, and right coronary arteries were occluded. He had a ZIMMERMAN that was widely patent. Vein graft to a diagonal, but appeared widely patent. The vein graft to a PDA and distal circumflex was a jump graft that was widely patent. He did not seem to have any sort of stenosis. His last echocardiogram was in 2013, demonstrating an EF of 50% to 55%. No significant abnormalities with his valves. 2. History of prostate cancer more than 20 years ago. 3. Hypothyroidism. 4. Previous CVA. 5. Hypertension. 6. Hyperlipidemia. SOCIAL HISTORY: He does not currently smoke. No alcohol use. FAMILY HISTORY: Significant for hypertension. REVIEW OF SYSTEMS: A 10-system review of systems is negative except for those things mentioned in the HPI. PHYSICAL EXAMINATION: Vital Signs: He has been afebrile for the last several days. His heart rate appears to be predominantly in the 70s to 80s. His blood pressure is 104/87. His lowest blood pressure recently was 95/56 on 07/15/2018. General: He is an elderly male, in no acute distress. Face mask is on. HEENT: Oropharynx is moist. He has poor dentition. His eye examination was pink conjunctivae, white sclerae. Neck: Examination shows no obvious thyromegaly or thyroid tenderness. Cardiovascular: He sounds to be in a regular rate and rhythm. I do not hear any obvious murmurs. He has no S3. He has no S4. He has no lower extremity edema. Chest: His chest exam has diffuse mild rales heard throughout all lung suero. No obvious wheezes were heard. He has no increased work of breathing. Abdomen: Soft, nontender, protuberant. Bowel sounds are present. Skin: Exam is warm and dry throughout. Neurological: He is moving all extremities well. He has no lateralizing deficits. Psychiatric: He seems a little bit confused and does not have a very good memory of the event that occurred yesterday. He attempts to answer questions, but he seems to be somewhat wordy in his answers. DIAGNOSTIC DATA: His EKG shows sinus rhythm. 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 PVC is present. No clear evidence of ischemic changes or Q-waves. His subsequent EKG on 07/15/2018 at 1909 hours again shows sinus rhythm, left anterior fascicular block. PVC was present. No clear evidence of ischemic changes or infarct. His telemetry was reviewed by me and does not demonstrate any evidence of any significant arrhythmias other than PVCs. His CT scan of his chest without contrast shows advanced pulmonary fibrosis, bilateral interstitial pulmonary infiltrates, likely representing usual interstitial pneumonitis. His lab data shows white count of 9.1, hematocrit 34, his platelet count is 395,000. His sodium is 129, potassium 3.4, his BUN is 16, creatinine 0.7. His albumin level is 2.8. He had a troponin checked yesterday which was negative. His proBNP was 3041 yesterday. ASSESSMENT: Mr. Mandujano is a 73-year-old gentleman with a history of coronary artery disease who had an episode of syncope yesterday. PLAN: This does not seem cardiac in etiology. His blood pressure and heart rate seemed to be intact during the event. In addition, his EKG recently has been unchanged. It does not appear that he has had one since the event, so we will check one today. I will check an echocardiogram. His troponin is unremarkable. He did not have any pain at the time of the event, and his telemetry did not demonstrate any significant arrhythmias. We will follow up on the echocardiogram. If this is unremarkable, then I would just continue watching him on telemetry and contact us if there are any other questions. cc: Jesus Ko MD
--- NOTE | 2018-07-17 12:52 | PROGRESS NOTE ---
DATE: 07/17/2018 SUBJECTIVE: The patient is resting comfortably in bed. He states that every time he eats, he starts coughing afterwards. He states that this has been going on for about 3 months. OBJECTIVE: Vital Signs: Temperature 97.7 degrees, blood pressure 102/67, heart rate 82, respirations 24. O2 saturation is 100% on Venturi mask. General: This is a chronically ill- appearing, elderly male lying in bed in no acute distress. Heart: S1, S2 normal. Regular rate and rhythm. Lungs: Equal air entry bilaterally. No wheezing. No rales. Abdomen: Positive bowel sounds. Soft, nontender, nondistended. Extremities: No edema. No cyanosis. Neurologic: The patient is alert and oriented x3. LABS: White blood cell count 9.1, hemoglobin 11, hematocrit 34, platelets 395,000. Sodium 129, potassium 3.4, chloride 88, CO2 27, BUN 16, creatinine 0.7, glucose 152. AST 36, ALT 47, alkaline phosphatase 59. Chest x-ray shows vascular distention with infiltrates in the lungs. ASSESSMENT AND PLAN: 1. Acute on chronic hypoxemic respiratory failure, multifactorial. The patient has pulmonary fibrosis and pneumonia. We will continue with antibiotics and bronchodilator therapy. A Ventilation/Perfusion scan is pending. 2. Pneumonia. The patient is likely aspirating. A barium swallow is planned for today. We will continue with antibiotic therapy. 3. Pulmonary fibrosis. Aware. 4. Benign prostatic hypertrophy. Continue on Flomax. 5. Severe coronary artery disease. Aware. Continue on the current cardiac medications. 6. Syncope. The patient has been seen by the balance truing inspector. An echocardiogram is currently pending. 7. Hyponatremia. Will check urine osmolality and urine sodium. We will continue to monitor the patient's sodium closely. 8. Elevated liver function tests. Will check a hepatitis profile. 9. Hypothyroidism. Continue on Synthroid. 10. Deep vein thrombosis prophylaxis. The patient is on Lovenox. cc: Silvina Poon MD
--- NOTE | 2018-07-17 13:58 | Diag Imaging Result Doc PS360 ---
EXAM: BA SWALLOW W/VIDEO SPEECH THER INDICATION: pneumonia with frequent choking spells TECHNIQUE: COMPARISON: None. FINDINGS: Upon swallowing thin liquid barium, there was suggestion of minimal cricopharyngeus hypertrophy. There was mild flash penetration on thin liquid barium successive swallows but no jp aspiration. Limited views of the distal esophagus are unremarkable. IMPRESSION: Suggestion of minimal cricopharyngeus hypertrophy. No aspiration appreciated. Electronically signed by Jimy Luevano 07/17/2018 1:56 PM
--- NOTE | 2018-07-17 14:02 | Diag Imaging Result Doc PS360 ---
EXAM: LUNG SCAN / VQ HISTORY: elevated ddimer, hypoxemia TECHNIQUE: Nuclear medicine ventilation/perfusion lung scan COMPARISON: Chest x-ray at 5:48 AM FINDINGS: 36.8 mCi DTPA used for ventilation images. 5.3 mCi MAA given intravenously for perfusion images. The lungs are poorly expanded. No wedge shaped perfusion defects. No ventilation perfusion mismatches. IMPRESSION: No evidence of a pulmonary embolus. Electronically signed by Junaid Zavala 07/17/2018 2:00 PM
--- NOTE | 2018-07-17 14:35 | EKG Report ---
Test Performed on : 07/17/2018 2:02:02 PM Test Reason : syncope Blood Pressure : / mmHG Vent. Rate : 074 BPM Atrial Rate : 074 BPM P-R Int : 180 ms QRS Dur : 112 ms QT Int : 390 ms P-R-T Axes : 007 -59 081 degrees QTc Int : 432 ms Sinus rhythm. with sinus arrhythmia. with occasional premature ventricular complexes. Left anterior fascicular block Abnormal ECG When compared with ECG of 17-JUL-2018 14:00, (Unconfirmed) premature ventricular complexes. are now present No significant change was found Confirmed by Kaila MCCLELLAN, Kunal Vela ([id number]) on 07/17/2018 5:50:40 PM
[2018-07-17] MEDS: LOVENOX SUBQ SCH (14:53)
[2018-07-17] MEDS: PERCOCET-5 PO PRN (16:21)
--- NOTE | 2018-07-17 16:36 | ECHO REPORT ---
ORDER DATE: 07/16/2018 INTERPRETING PHYSICIAN: Dr. Luicano REQUESTING PHYSICIAN: CLINICAL INDICATIONS: This is a 73-year-old male with CHF, pneumonia, respiratory failure. M-MODE MEASUREMENTS: Right ventricle: cm. Left ventricle end diastole: 4.6 cm. Left ventricle end systole: 3.5 cm. Posterior wall: 1.3 cm. Interventricular septum: 1.3 cm. Left atrium: 5.2 cm. Aortic root: 3.3 cm. SUMMARY OF 2-DIMENSIONAL IMAGIN. The left ventricular function appears to be normal. The ejection fraction is visually estimated at 55% to 60%. No wall motion abnormality is noted. 2. Right ventricle appears to be normal. 3. The atria appear to be normal. 4. Aortic valve opens normally. Color flow mapping indicates mild degree of regurgitation. 5. Mitral annulus shows calcification. Color flow mapping indicates mild degree of regurgitation. 6. Pulse wave Doppler of mitral inflow shows reversal of the E and the A ratio, the ratio is 0.7. 7. Tissue Doppler of septal and lateral mitral annulus averages 11 cm. 8. There is no diastolic dysfunction. 9. Tricuspid valve shows mild to moderate degree of regurgitation. 10.Inferior vena cava is at the upper limits of normal. 11.Pulmonary pressure is estimated at 55 mmHg. 12.Pulmonic valve looks normal. Color flow mapping is unremarkable. 13.There is no pericardial effusion, mass, or thrombus. Clinical correlation is recommended. cc: MD Silvina Garcia MD
[2018-07-17] MEDS: VANCOMYCIN 1.5 GM in NS 250 ML IV SCH (20:12)
[2018-07-17] MEDS: FLOMAX PO SCH (20:12)
[2018-07-17] MEDS: IMDUR PO SCH (20:14)
[2018-07-18] MEDS: MAXIPIME 2 GM in NS 100 ML IV SCH ×2 (02:58→14:01)
[2018-07-18] MEDS: PERCOCET-5 PO PRN ×2 (02:58→20:18)
[2018-07-18] MEDS: DUONEB (A & A) INH SCH ×6 (04:01→23:21)
[2018-07-18 05:06] LABS: ALLEN TEST YES; BE 3.5 mmoll (-3.0-3.0); BLOOD TYPE ARTERIAL; HCO3-(ACT) 27.6 mmoll (20.0-26.0); METHB 1.3 % (0.0-1.5); PCO2(98.6) 44 mmHg (35-45); PO2(98.6) 87 mmHg (60-100); SAMPLE BLOOD; SAO2 97.7 % (95.0-100.0); THB 11.9 g/dL (11.5-17.4); pH(98.6) 7.42 (7.35-7.45)
[2018-07-18 05:07] LABS: MODALITY VENTIMASK
[2018-07-18 06:14] LABS: BASO# 0.04 X1000 (0.0-0.2); BASO% 0.5 % (0.0-0.8); EOS# 0.43 X1000 (0.0-0.7); EOS% 5.8 % (0.0-10.0); HEMATOCRIT 34.8 % (42.0-52.0); HEMOGLOBIN 11.7 g/dL (14.0-18.0); IMM GRAN# 0.03 X1000 (0.0-0.04); IMM GRAN% 0.4 % (0.0-0.5); LYMPH# 1.16 X1000 (1.2-3.4); LYMPH% 15.5 % (20.5-51.1); MCH 31.7 PG (27-31); MCHC 33.6 g/dL (33-37); MCV 94.3 FL (81-99); MONO% 12.1 % (1.7-9.3); MPV 9.2 FL (7.4-10.4); NEUT% 65.7 % (42.2-75.2); PLT 378 X1000 (130-400); RBC 3.69 XMIL (4.7-6.1); RDW 12.3 % (11.5-14.5); WBC 7.46 X1000 (4.8-10.8)
[2018-07-18 06:19] LABS: AGAP 10; ALB/GLOB RATIO 0.8; ALKALINE PHOSPHATASE 59 U/L (32-122); BUN 13 mg/dL (8-22); CALCIUM 7.9 mg/dL (8.8-10.2); CHLORIDE 95 mmol/L (98-107); COSMO 268; CREATININE 0.7 mg/dL (0.7-1.2); ESTIMATED GFR > 60; GLUCOSE 127 mg/dL (70-104); GOT 41 U/L (10-34); GPT 50 U/L (10-44); POTASSIUM 4.1 mmol/L (3.5-5.1); SODIUM 133 mmol/L (136-145); TCO2 28 mmol/L (25-35); TOTAL BILIRUBIN 0.63 mg/dL (0.20-1.00); TOTAL PROTEIN 6.8 g/dL (6.3-8.3)
[2018-07-18] MEDS: SYNTHROID PO SCH (07:04)
[2018-07-18 07:13] LABS: EOS 6 % (1-10); LYMPHS 14 % (21-51); MONO 10 % (1-9); SEGS 70 % (42-75)
--- NOTE | 2018-07-18 07:19 | Diag Imaging Result Doc PS360 ---
EXAM: CHEST-PORTABLE 07/18/2018 HISTORY: dyspnea TECHNIQUE: AP portable at 0611 COMMENT: The inspiration is suboptimal. There is ill-defined opacity in both lower lobes and the right upper lobe. The opacities in the right lower lobe are slightly worse than on 07/17/2018 and the hemidiaphragm is now obscured. IMPRESSION: Slightly worsened atelectasis versus pneumonia right lower lobe. Pulmonary edema. Electronically signed by Enrico Rodriguez 07/18/2018 7:17 AM
[2018-07-18] MEDS: MUCOMYST 20% INH SCH ×2 (07:45→19:45)
[2018-07-18] MEDS: ASPIRIN PO SCH (09:32)
[2018-07-18] MEDS: PRINIVIL PO SCH (09:33)
[2018-07-18] MEDS: PRILOSEC PO SCH ×2 (09:33→20:19)
[2018-07-18] MEDS: PLAVIX PO SCH (09:34)
[2018-07-18] MEDS: PAXIL PO SCH (09:37)
[2018-07-18] MEDS: LIPITOR PO SCH (09:37)
[2018-07-18] MEDS: CULTURELLE PO SCH ×2 (09:38→20:19)
[2018-07-18] MEDS: TOPROL XL PO SCH (09:38)
--- NOTE | 2018-07-18 10:11 | PROGRESS NOTE ---
DATE: 07/18/2018 SUBJECTIVE: This is a 73-year-old gentleman, with a history of prostate cancer greater than 20 years ago, coronary artery disease, status post coronary artery bypass graft, subsequent PCI, prior CVA and hypothyroidism, who presented to the emergency room complaining of 4 days of increased shortness of breath along with chills, headache, cough, and fever maximum of 101.8. On EMS arrival he was on room air. His O2 saturation was 85%, increased it to 93% after 4 L nasal cannula. Did state he had chest heaviness 2 days ago, that did resolve with nitroglycerin. He has had no further recurrence. Chest x-ray revealed bilateral basilar atelectasis and infiltrates. Blood cultures were obtained. Given azithromycin and Rocephin. He presented and was admitted with bilateral lower lobe pneumonia. Blood cultures were obtained. He was put on Rocephin and azithromycin, and noted to have leukocytosis thought secondary to pneumonia. Coronary artery disease. Continued his home medications. Hypothyroidism. History of prostate cancer. PAST MEDICAL HISTORY: Prostate cancer, greater than 20 years ago, coronary artery disease status post coronary artery bypass graft in 2006, subsequent PCI, stents, hypothyroidism, prior CVA. OBJECTIVE: General: On examination today, he is sleeping sound, appears comfortable, breathing comfortably. Vitals: Temperature 98.0 degrees, pulse 78, respirations 22, blood pressure 110/59. HEENT: Pupils are equal and round. Lungs: Clear in all lung suero. Cardiovascular: Regular rhythm and rate without murmur or S3. Abdomen: Soft. Skin: Warm and dry. : Urine output is 3800 mL. DIAGNOSTIC DATA: Laboratory reviewed. White count 7460, hematocrit 34, platelet count 378,000. Sodium 133, potassium 4.1, chloride 95, BUN 13, creatinine 0.7. AST was 41, ALT 50, which is about the same as when checked on 07/16/2018. Blood gas from yesterday, pH is 7.42, pCO2 44, pO2 is 87, O2 saturation was 95%. Chest x-ray from yesterday with slightly worsened atelectasis versus pneumonia right lower lobe. ASSESSMENT AND PLAN: 1. Acute on chronic hypoxemic respiratory failure, multifactorial. The patient has pulmonary fibrosis and pneumonia. Continue antibiotics and bronchodilator therapy. He has a ventilation/perfusion scan that I think they are planning. 2. Pneumonia, likely aspiration. He has a pulmonary swallow planned. I think it was done yesterday. Report pending. 3. Pulmonary fibrosis, aware. 4. Benign prostatic hypertrophy on Flomax. 5. Severe coronary artery disease. Aware. Does not appear to have any active cardiac ischemia. He is on his regular cardiac medications. 6. Syncope. The patient has been seen by a humane agent, an echocardiogram pending. 7. Hyponatremia. 8. Elevated liver functions, which were mild. Hepatitis profile pending. 9. Hypothyroidism. 10. Review of his orders. I think he has a barium swallow that is pending. cc: Robel Andrea MD
[2018-07-18] MEDS ORDERED: DIPRIVAN 1% ONE (13:22)
[2018-07-18] MEDS: LOVENOX SUBQ SCH (14:02)
--- NOTE | 2018-07-18 14:05 | OPERATIVE NOTE ---
PROCEDURE DATE: 07/18/2018 PREOPERATIVE DIAGNOSIS: Dysphagia. POSTOPERATIVE DIAGNOSES: 1. Sobia esophagitis. 2. Mild esophageal stricture. PROCEDURES PERFORMED: 1. Esophagogastroduodenoscopy. 2. Esophageal dilation with Polanco. DESCRIPTION OF PROCEDURE: After informed consent and adequate intravenous sedation, the scope was introduced into the esophagus. The patient has mild Sobia esophagitis, mostly in the lower esophagus. There is also reflux-related mild stricture of the distal esophagus. Stomach itself and duodenum are normal. The scope was withdrawn. At this point, esophageal dilation was done up to #[id number]-Nepali Polanco. The patient tolerated the procedure well without any immediate complications. cc: Mark Veloz MD
[2018-07-18] MEDS: FLOMAX PO SCH (20:19)
[2018-07-18] MEDS: VANCOMYCIN 1.5 GM in NS 250 ML IV SCH (20:19)
[2018-07-18] MEDS: IMDUR PO SCH (20:19)
[2018-07-18] MEDS ORDERED: MYCOSTATIN SUSP PO SCH (21:00)
[2018-07-19] MEDS: MAXIPIME 2 GM in NS 100 ML IV SCH ×2 (02:27→14:36)
[2018-07-19] MEDS: DUONEB (A & A) INH SCH ×6 (03:25→23:05)
--- NOTE | 2018-07-19 04:25 | PULMONOLOGY PROGRESS NOTE ---
DATE: 07/18/2018 SUBJECTIVE: The patient reports a little bit of shortness of breath after he returned from the esophageal dilation. Otherwise, he feels about the same. He is without new complaints. OBJECTIVE: Vital Signs: The patient has been afebrile for the last 24 hours. Blood pressure 126/73, heart rate 72, respiratory rate 16, oxygen saturation 100% on nasal cannula. HEENT: Pupils are equal and reactive. Oropharynx is clear. Neck: Supple. Chest: Reveals crackles in the lung bases. Cardiac Examination: S1 and S2. Abdomen: Obese and soft. Extremities: Reveal trace to 1+ edema. Laboratories: Chest x-ray reveals bibasilar infiltrates, which may be slightly worse. IMPRESSION: A 73-year-old with aspiration pneumonia, component of pulmonary fibrosis, dysphagia, with mild esophageal stricture/cricopharyngeal achalasia. The patient has completed an upper endoscopy with a dilation. PLAN: 1. Continue current antibiotic regimen. 2. Continue safe swallowing processes. 3. Continue oxygen for hypoxemic respiratory failure. 4. Overall prognosis is guarded. cc: Mario Wu MD MTDD
[2018-07-19] MEDS: SYNTHROID PO SCH (06:11)
[2018-07-19] MEDS: PERCOCET-5 PO PRN (06:12)
[2018-07-19] MEDS: MUCOMYST 20% INH SCH ×2 (07:42→19:05)
[2018-07-19] MEDS: PAXIL PO SCH (10:03)
[2018-07-19] MEDS: CULTURELLE PO SCH ×2 (10:04→21:14)
[2018-07-19] MEDS: TOPROL XL PO SCH (10:04)
[2018-07-19] MEDS: PRILOSEC PO SCH (10:04)
[2018-07-19] MEDS: PRINIVIL PO SCH (10:04)
[2018-07-19] MEDS: PLAVIX PO SCH (10:04)
[2018-07-19] MEDS: ASPIRIN PO SCH (10:04)
[2018-07-19] MEDS: LIPITOR PO SCH (10:04)
--- NOTE | 2018-07-19 10:19 | PROGRESS NOTE ---
DATE: 07/19/2018 SUBJECTIVE: Mr. Mandujano says he is doing better. Breathing better. He is still pretty weak. He is still coughing. OBJECTIVE: Vital Signs: Temperature 97.6 degrees, pulse 74, respirations 16, blood pressure 132/72. HEENT: Pupils are equal and round. Lungs: Clear anterolateral. Cardiovascular Examination: Regular rhythm and rate without murmur or S3. Is and Os: Urine output was about 3 L. ASSESSMENT AND PLAN: A 73-year-old with aspiration pneumonia, component of pulmonary fibrosis, dysphagia, mild esophageal stricture, cricopharyngeal achalasia. He has completed an upper endoscopy with dilatation. Continue antibiotics. Continue his therapy was swallowing and supplementary oxygen. We need to continue physical therapy as well. His chest x-ray from yesterday, slightly worsened atelectasis versus pneumonia, right lower lobe. I want to make sure physical therapy is involved. cc: Robel Andrea MD
[2018-07-19 11:57] LABS: HEPATITIS PROFILE ACUTE SEE COMMENTS
[2018-07-19] MEDS: LOVENOX SUBQ SCH (14:36)
[2018-07-19] MEDS: MYCELEX TROCHE PO SCH ×2 (14:36→21:14)
[2018-07-19] MEDS: MYCOSTATIN SUSP PO SCH ×2 (17:12→21:18)
[2018-07-19] MEDS: FLOMAX PO SCH (21:14)
[2018-07-19] MEDS: IMDUR PO SCH (21:14)
[2018-07-19] MEDS: VANCOMYCIN 1,800 MG in NS 250 ML IV SCH (21:14)
[2018-07-19] MEDS: ICAR-C PO SCH (21:17)
[2018-07-19] MEDS: PROTONIX IV SCH (21:18)
[2018-07-19] MEDS: PERICOLACE PO SCH (21:18)
[2018-07-20] MEDS: PERCOCET-5 PO PRN (02:14)
[2018-07-20] MEDS: MYCELEX TROCHE PO SCH ×4 (02:15→20:23)
[2018-07-20] MEDS: MAXIPIME 2 GM in NS 100 ML IV SCH ×2 (02:21→14:34)
[2018-07-20] MEDS: DUONEB (A & A) INH SCH ×6 (03:03→23:15)
--- NOTE | 2018-07-20 04:37 | PROGRESS NOTE ---
DATE: 07/19/2018 SUBJECTIVE: The patient is resting in bed. I spoke to the patient's and his granddaughter. The patient continues to have trouble with breathing. He has continued to feel strangled while eating. Per the records, he was able to eat 100% of his meal. He had an EGD with dilation yesterday by Dr. Veloz. PHYSICAL EXAMINATION: Vital Signs: Temperature 97.8, pulse rate of 79 respiratory rate of 22, blood pressure 131/65, saturating 98% on Ventimask at 8 L per minute of oxygen flow. General Appearance: Obese, lying in bed, in no acute distress. HEENT: Pale conjunctivae. No icterus. Face mask in place. Neck: Supple. Abdomen: Protuberant abdomen, no guarding. Extremities: No cyanosis, clubbing. Neurologic: Alert, awake, and answers questions. LABS: Hemoglobin and hematocrit are 11.7 and 34, white count of 7.46, platelet count of 378,000. ABG showing pH of 7.42, pCO2 of 44, PO2 87. This is on Ventimask 50% FiO2. Sodium 136, potassium 4.1, chloride 95, bicarb 20, anion gap 10, BUN of 13, creatinine 0.7, glucose of 127, calcium is 7.9. Total bilirubin is 0.63, AST 41, ALT 50, alkaline phosphatase is 59, total protein 6.8, albumin of 3. MARISSA is negative. Hepatitis panel is nonreactive. IMPRESSION AND PLAN: 1. Dysphagia. He continues to have symptoms. The esophagogastroduodenoscopy showed evidence of esophageal stricture which was dilated up to 60-Hungarian. We will see how he does. 2. Sobia esophagitis. We will start him on nystatin swish and swallow 4 times daily. 3. Gastrointestinal prophylaxis and reflux disease. We will switch him to Protonix twice a day. We will discontinue the Prilosec twice daily. 4. Aspiration pneumonia. He is on antibiotics. 5. Pulmonary fibrosis. Aware. 6. Cricopharyngeal achalasia, status post esophageal dilation. We will see how he does. 7. Deconditioning. He is in physical therapy. 8. Anemia. Continue to watch for now. We will start him on iron C and multivitamins. 9. Elevated liver enzymes. We will check an abdominal ultrasound. His hepatitis panel is negative. 10. The above plans were discussed with the patient and family. All questions were answered. Please call with any further questions. cc: MD Robel Pfeiffer MD MTDD
[2018-07-20] MEDS: SYNTHROID PO SCH (06:23)
[2018-07-20] MEDS: PAXIL PO SCH (08:04)
[2018-07-20] MEDS: LIPITOR PO SCH (08:04)
[2018-07-20] MEDS: CULTURELLE PO SCH ×2 (08:04→20:23)
[2018-07-20] MEDS: ICAR-C PO SCH ×2 (08:04→20:23)
--- NOTE | 2018-07-20 08:04 | PULMONOLOGY PROGRESS NOTE ---
DATE: 07/19/2018 SUBJECTIVE: The patient reports his breathing has improved, but he has had episodes of coughing today liquids. OBJECTIVE: Vital Signs: The patient has been afebrile for the last 24 hours. Blood pressure 128/68. Heart rate 78. Respiratory rate 16. Oxygen saturation 98% on nasal cannula. HEENT: Pupils are equal and reactive. Oropharynx is clear. Neck is supple chest reveals crackles in the lung bases. Cardiac: S1-S2. Abdomen Obese and soft. Extremities: Without edema. LABORATORY DATA: No new chemistries or CBC. IMPRESSION: A 73-year-old with aspiration pneumonia, component of pulmonary fibrosis. dysphagia, status post dilation of esophageal stricture. Clinically, he appears to be improving. He has had some choking today which is likely related to edema/dilation of the esophagus. RECOMMENDATION: 1. Continues safe swallowing practices. 2. Continue antibiotic regimen. 3. Wean oxygen as tolerated. cc: Mario Wu MD
[2018-07-20] MEDS: PROTONIX IV SCH ×2 (08:05→20:24)
[2018-07-20] MEDS: CENTRUM SILVER PO SCH (08:05)
[2018-07-20] MEDS: PRINIVIL PO SCH (08:05)
[2018-07-20] MEDS: PERICOLACE PO SCH ×2 (08:05→20:23)
[2018-07-20] MEDS: TOPROL XL PO SCH (08:05)
[2018-07-20] MEDS: SODIUM CHLORIDE 0.9% INJ SCH ×2 (08:05→20:24)
[2018-07-20] MEDS: PLAVIX PO SCH (08:05)
[2018-07-20] MEDS: ASPIRIN PO SCH (08:05)
[2018-07-20] MEDS: MUCOMYST 20% INH SCH ×2 (08:34→19:15)
--- NOTE | 2018-07-20 10:08 | PROGRESS NOTE ---
DATE: 07/20/2018 SUBJECTIVE: Mr. Mandujano is still pretty weak. He is eating pretty well. His breathing is good. We are struggling to find a place for him to go for residential and rehab. He remains afebrile. OBJECTIVE: Vital signs: Temperature 97.6 degrees, pulse 68, respirations 15. Lungs: Clear in all lung suero. Cardiovascular: Regular rhythm and rate without murmur or S3. Abdomen: Soft. Skin: Warm and dry. Urine output is 3800 mL. ASSESSMENT AND PLAN: 1. A 73-year-old with aspiration pneumonia, component of pulmonary fibrosis, dysphagia, status post dilatation of esophageal stricture. He appears to be improving steadily. We need to work on his strength still. Will continue his safe swallowing practices. Continue antibiotic regimen. Wean his oxygen as tolerated. 2. Dysphagia. EGD showed esophageal stricture which was dilated. He had some Sobia esophagitis. 3. Pulmonary fibrosis. 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 5. Deconditioning, weakness. Continue physical therapy. 6. Anemia. He is on iron plus vitamin C and his hematocrit and hemoglobin are stable. Hematocrit 34, hemoglobin 11. Electrolytes look good. So, we are working with his strength. Hopefully we can find placement for him. cc: Robel Andrea MD
--- NOTE | 2018-07-20 11:39 | PROGRESS NOTE ---
DATE: 07/20/2018 SUBJECTIVE: He is resting in bed. He ate his meal this morning. He had small episodes of choking but able to keep 100% of his meal down. His breathing is still the same. OBJECTIVE: Vital Signs: Temperature 97.6, pulse of 68, respiratory 15 blood pressure 106/57, saturating 100% on Ventimask 8 L. General: He is moderately-built, lying in bed, in no acute distress. HEENT: Mild pallor. No icterus. Neck is supple. Abdomen is protuberant and mild obesity. No guarding or rebound. Extremities: No cyanosis, clubbing. Neuro: Alert, awake, oriented x3. LABORATORY DATA: Random vancomycin level is 8.6. IMPRESSION AND PLAN: 1. Pulmonary fibrosis. He is still requiring high amounts of oxygen. He is under the care of Dr. Wu. 2. Aspiration pneumonia. He is on antibiotics. 3. Dysphagia status post esophagogastroduodenoscopy with dilation. His swallowing is slowly improving. 4. Sobia esophagitis. He will continue on Nystatin swish and swallow for 2 weeks. 5. Cricopharyngeal achalasia, status post esophageal dilation. 6. Pulmonary fibrosis, aware. 7. Deconditioning and weakness. He will continue physical therapy. 8. Anemia. Continue to watch for now and continue iron supplementation and multivitamins. 9. Deep venous thrombosis prophylaxis; Lovenox. He is at a high dose of Lovenox of 80 mg every day. This, hopefully, is going to be switched to a prophylactic dose as the patient was negative for pulmonary embolus. I discussed the above plan with the patient. All questions answered. cc: MD Robel Pfeiffer MD
[2018-07-20] MEDS: LOVENOX SUBQ SCH (14:33)
[2018-07-20] MEDS: IMDUR PO SCH (20:23)
[2018-07-20] MEDS: FLOMAX PO SCH (20:24)
[2018-07-20] MEDS: VANCOMYCIN 1,800 MG in NS 250 ML IV SCH (20:24)
[2018-07-21] MEDS: DUONEB (A & A) INH SCH ×6 (03:17→23:08)
[2018-07-21] MEDS: MAXIPIME 2 GM in NS 100 ML IV SCH ×2 (03:52→15:15)
[2018-07-21] MEDS: MYCELEX TROCHE PO SCH ×5 (03:52→20:23)
[2018-07-21] MEDS: PERCOCET-5 PO PRN ×2 (04:16→21:47)
[2018-07-21] MEDS: SYNTHROID PO SCH (06:29)
--- NOTE | 2018-07-21 07:29 | PULMONOLOGY PROGRESS NOTE ---
DATE: 07/20/2018 SUBJECTIVE: The patient is awake alert and conversant. He reports his swallowing has improved today compared with yesterday. His cough is less severe. OBJECTIVE: BP 113/54, heart rate 72, respiratory rate 16, oxygen saturation 100% on nasal cannula.HEENT: Pupils are equal and reactive. Oropharynx is clear. Neck: Is supple. Chest: Reveals crackles in both lung bases. Cardiac: S1-S2. Abdomen: Soft without hepatosplenomegaly. Extremities: Reveal 1+ pretibial edema. LABORATORIES: No new data. IMPRESSION: 73-year-old with aspiration pneumonia, esophageal stricture/achalasia status post dilation, a component of pulmonary fibrosis, with clinically improving dysphagia. PLAN: 1. Continue safe swallowing practices. 2. Continue antibiotic regimen. 3. Wean oxygen as tolerated. 4. Follow-up chest x-ray tomorrow morning. cc: Mario Wu MD
--- NOTE | 2018-07-21 08:24 | Diag Imaging Result Doc PS360 ---
CHEST-2 VIEWS - 07/21/2018 INDICATION: abnormal exam COMPARISON: 07/18/2018 FINDINGS: Stable sternotomy changes and electrodes in the central canal of the thoracic spine. Stable low lung volumes. Stable extensive bilateral basilar infiltrates mainly in the lower lobes. No new infiltrates. IMPRESSION: No change from prior. Electronically signed by Zay Taylor 07/21/2018 8:21 AM
[2018-07-21] MEDS: MUCOMYST 20% INH SCH ×2 (08:32→19:08)
--- NOTE | 2018-07-21 09:18 | PROGRESS NOTE ---
DATE: 07/21/2018 SUBJECTIVE: Mr. Mandujano is breathing better. He says he has improved, still using nasal cannula. He has not had to use the BiPAP through the night. OBJECTIVE: Vital Signs: He remains afebrile. Temperature 97.6 degrees, pulse 64, respirations 16, blood pressure 116/64. HEENT: Pupils are equal and round. Lungs: Clear in all lung suero, anterior lateral. Cardiovascular: Regular rhythm and rate without murmur or S3. Abdomen: Soft. Skin: Warm and dry. DIAGNOSTIC DATA: Urine output is 2500 mL. Chest x-ray from this morning, stable sternotomy changes. Electrodes in the central canal of the thoracic spine. Stable low lung volumes. Stable extensive bilateral basilar infiltrates, mainly in the lower lobes infiltrates. ASSESSMENT AND PLAN: 1. Aspiration pneumonia, esophageal stricture, achalasia status post dilatation of his esophagus, component of pulmonary fibrosis. He shows slow improvement. Continue to encourage safe swallowing practices. Continue the present antibiotics and wean his oxygen as tolerated. I suspect he will need another at least 48 hours of treatment. 2. Pulmonary fibrosis. 3. Dysphagia, status post esophageal dilatation. 4. Sobia esophagitis. He is taking I think Mycelex. The nystatin swish and swallow was in short supply. 5. Cricopharyngeal achalasia, status post esophageal dilatation as well. 6. General weakness and deconditioning, which are improving. So, looking over his orders, we will continue present measures. 7. I should add also benign prostatic hypertrophy, for which he is on Flomax. cc: Robel Andrea MD MTDD
[2018-07-21] MEDS: LIPITOR PO SCH (10:10)
[2018-07-21] MEDS: ICAR-C PO SCH ×2 (10:11→20:23)
[2018-07-21] MEDS: CULTURELLE PO SCH ×2 (10:11→20:23)
[2018-07-21] MEDS: PRINIVIL PO SCH (10:11)
[2018-07-21] MEDS: PERICOLACE PO SCH ×2 (10:11→20:22)
[2018-07-21] MEDS: PLAVIX PO SCH (10:12)
[2018-07-21] MEDS: TOPROL XL PO SCH (10:12)
[2018-07-21] MEDS: PAXIL PO SCH (10:12)
[2018-07-21] MEDS: ASPIRIN PO SCH (10:12)
[2018-07-21] MEDS: CENTRUM SILVER PO SCH (10:12)
[2018-07-21] MEDS: PROTONIX IV SCH ×2 (10:13→20:24)
[2018-07-21] MEDS: SODIUM CHLORIDE 0.9% INJ SCH (10:13)
[2018-07-21] MEDS: LOVENOX SUBQ SCH (15:14)
--- NOTE | 2018-07-21 17:41 | GASTROENTEROLOGY PROGRESS NOTE ---
DATE: 07/21/2018 SUBJECTIVE: No acute events overnight. Afebrile. The patient reports improvement in shortness of breath as well as cough. He does report some mild dysphagia to eating today during lunch as well as with sips of water. No nausea, vomiting, abdominal pain. The patient is having bowel movements. OBJECTIVE: Vital signs: Temperature 97.8, heart rate of 72, respiratory rate 28, blood pressure 136/70, oxygen saturation 98% on 5 L nasal cannula. General: The patient is awake, alert, oriented, in no acute distress. HEENT: Extraocular movements were intact. Moist mucous membranes. Neck: No JVD. Cardiac: Regular rate and rhythm. No murmurs. Abdomen: Obese, nontender, nondistended. Normoactive bowel sounds. No rebound or guarding. No ascites. Lower extremities: No cyanosis, clubbing or edema. Neurologic: Nonfocal. Pulmonary: Mild increased respiratory rate. Lungs with decreased breath sounds bilaterally at bases, otherwise clear. DIAGNOSTIC DATA: No new labs. ASSESSMENT AND PLAN: 1. Pulmonary fibrosis. The patient is currently requiring high amounts of oxygen, although clinically he reports improvement in his respiratory status. 2. Aspiration pneumonia. Currently on antibiotics. The patient is afebrile. 3. Dysphagia. The patient is status post EGD with dilation. I suspect a component of his dysphagia is oropharyngeal in nature given his dysphagia to liquids. There is a question of whether the patient has cricopharyngeal achalasia. 4. Sobia esophagitis. Continue the patient on nystatin swish and swallow for a total of 2 weeks. 5. Deconditioning and weakness. Continue physical therapy. 6. Anemia. Continue iron and multivitamins. 7. DVT prophylaxis. The patient is on Lovenox. I have discussed the plan with the patient. All questions answered.
[2018-07-21] MEDS: ZOFRAN IV PRN (18:13)
[2018-07-21] MEDS: IMDUR PO SCH (20:23)
[2018-07-21] MEDS: FLOMAX PO SCH (20:23)
[2018-07-21] MEDS: VANCOMYCIN 1,800 MG in NS 250 ML IV SCH (20:24)
[2018-07-22] MEDS: MAXIPIME 2 GM in NS 100 ML IV SCH ×2 (03:01→14:33)
[2018-07-22] MEDS: MYCELEX TROCHE PO SCH ×4 (03:02→20:20)
[2018-07-22] MEDS: DUONEB (A & A) INH SCH ×6 (03:08→23:12)
[2018-07-22] MEDS: SYNTHROID PO SCH ×2 (04:55→06:14)
[2018-07-22] MEDS: MUCOMYST 20% INH SCH ×2 (07:43→19:12)
[2018-07-22] MEDS: ASPIRIN PO SCH (09:58)
[2018-07-22] MEDS: CENTRUM SILVER PO SCH (09:58)
[2018-07-22] MEDS: PROTONIX IV SCH ×2 (09:58→20:20)
[2018-07-22] MEDS: CULTURELLE PO SCH ×2 (09:59→20:20)
[2018-07-22] MEDS: PERCOCET-5 PO PRN ×2 (09:59→20:19)
[2018-07-22] MEDS: PLAVIX PO SCH (09:59)
[2018-07-22] MEDS: PAXIL PO SCH (10:00)
[2018-07-22] MEDS: LIPITOR PO SCH (10:00)
[2018-07-22] MEDS: PERICOLACE PO SCH ×2 (10:00→20:20)
[2018-07-22] MEDS: ICAR-C PO SCH ×2 (10:00→20:20)
[2018-07-22] MEDS: PRINIVIL PO SCH (10:01)
[2018-07-22] MEDS: TOPROL XL PO SCH (10:01)
--- NOTE | 2018-07-22 11:12 | PROGRESS NOTE ---
DATE: 07/22/2018 SUBJECTIVE: Mr. Mandujano says he does not feel good. Physical therapy is hard on him. He had a spell last night he said where he was short of breath. Feels like he needs some more oxygen. He is eating. He is getting a little stronger. He is discouraged as it is so slow. OBJECTIVE: Vital Signs: Temperature 98.8 degrees, pulse 79, respirations 24 and blood pressure 95/52. Eyes: Pupils are equal and round. Lungs: Clear in all lung suero. Cardiovascular exam: Regular rhythm and rate without murmur or S3. Abdomen: Soft. Skin: Warm and dry. : Urine output is 2500 mL. ASSESSMENT AND PLAN: 1. Aspiration pneumonia, esophageal stricture, achalasia status post dilatation of esophagus and component of pulmonary fibrosis. He is showing improvement. Continue his antibiotics and continue to wean his oxygen as he is tolerating. 2. Pulmonary fibrosis. 3. Dysphagia, status post esophageal dilatation. 4. Sobia esophagitis. Taking Mycelex troches. 5. Chronic oropharyngeal achalasia, status post esophageal dilatation as well. 6. General weakness, deconditioning. We are working hard on his physical therapy. Hopefully he can go to rehabilitation; I am not sure if we will be able to find a place. 7. Benign prostatic hypertrophy. REVIEW OF HIS ORDERS: I do not see any change. He is on Protonix 40 mg IV q. 12 hours. He is on Maxipime 2 g IV q. 12 hours and vancomycin 1800 mg q. 24 hours. cc: Robel Andrea MD
[2018-07-22] MEDS: LOVENOX SUBQ SCH (14:32)
[2018-07-22] MEDS: IMDUR PO SCH (20:20)
[2018-07-22] MEDS: FLOMAX PO SCH (20:20)
[2018-07-22] MEDS: VANCOMYCIN 1,800 MG in NS 250 ML IV SCH (21:26)
--- NOTE | 2018-07-22 23:07 | PROGRESS NOTE ---
DATE: 07/22/2018 SUBJECTIVE: Patient resting in bed. His oxygen requirement has gone down. He was able to eat his meal today. He does complain of occasional choking spells. OBJECTIVE: Vitals: Temperature 98 degrees, pulse rate of 80, respiratory 16, blood pressure 102/47 saturating 90% 2 L nasal cannula. General Appearance: Obese lying in bed in no acute. HEENT: Pale no icterus. Neck: Is supple. Abdomen: Is obese, soft, nontender, nondistended, no guarding. Extremities: No cyanosis, clubbing. Neuro: Was alert, awake, oriented. LABS: His random vancomycin level is 8.6. IMPRESSION AND PLAN: 1. Aspiration pneumonia and component of pulmonary fibrosis, he is on antibiotics, he is weaning down from oxygen. Currently he is on 2 L nasal cannula. 2. Dysphagia status post esophageal dilation. His swallowing is slowly improving. 3. Retropharyngeal achalasia, we will see his response with dilation 4. Gastrointestinal prophylaxis with PPIs IV b.i.d. 5. Generalized weakness, deconditioning, he will continue physical therapy. 6. Anemia, continue to watch for now. 7. Bowel regimen with Fiorella-Colace. 8. Above plan discussed the patient and all questions answered. Please call us with any questions. cc: Robel Andrea MD MTDD
[2018-07-23] MEDS: DUONEB (A & A) INH SCH ×6 (03:08→23:20)
[2018-07-23] MEDS: MYCELEX TROCHE PO SCH ×4 (03:12→21:14)
[2018-07-23] MEDS: MAXIPIME 2 GM in NS 100 ML IV SCH ×2 (03:12→14:40)
[2018-07-23] MEDS: PERCOCET-5 PO PRN ×3 (03:15→23:31)
[2018-07-23] MEDS: SYNTHROID PO SCH ×2 (05:27→06:01)
[2018-07-23] MEDS: ROBITUSSIN-AC PO PRN ×2 (05:30→21:14)
[2018-07-23] MEDS: MUCOMYST 20% INH SCH ×2 (07:42→19:30)
[2018-07-23] MEDS: PROTONIX IV SCH ×2 (10:13→21:14)
[2018-07-23] MEDS: LIPITOR PO SCH (10:13)
[2018-07-23] MEDS: SODIUM CHLORIDE 0.9% INJ SCH (10:13)
[2018-07-23] MEDS: CULTURELLE PO SCH ×2 (10:14→21:14)
[2018-07-23] MEDS: ICAR-C PO SCH ×2 (10:14→21:14)
[2018-07-23] MEDS: PRINIVIL PO SCH (10:14)
[2018-07-23] MEDS: PERICOLACE PO SCH ×2 (10:14→21:14)
[2018-07-23] MEDS: ASPIRIN PO SCH (10:14)
[2018-07-23] MEDS: PLAVIX PO SCH (10:14)
[2018-07-23] MEDS: PAXIL PO SCH (10:15)
[2018-07-23] MEDS: CENTRUM SILVER PO SCH (10:15)
[2018-07-23] MEDS: TOPROL XL PO SCH (10:15)
--- NOTE | 2018-07-23 10:41 | PROGRESS NOTE ---
DATE: 07/23/2018 SUBJECTIVE: He is resting in bed. He is tachypneic. His oxygen levels are 92% on 3 L nasal cannula. He had an uneventful night. He is eating slightly better. OBJECTIVE: Vital signs: Temperature is 98, pulse rate 74, respiratory rate 16, blood pressure 116/62, saturating 92% on 3 L nasal cannula. General: Obese, lying in bed, in no acute distress. HEENT: Pale conjunctivae. No icterus. Mild tachypnea. Neck is supple. Abdomen is obese, soft, nontender and nondistended. No guarding or rebound. Extremities: No cyanosis, clubbing, or edema. Neurologic: He is alert, awake, oriented x3. DIAGNOSTIC DATA: Random vancomycin is 14.3. C. difficile toxin was initially ordered but is cancelled. IMPRESSION AND PLAN: 1. Dysphagia, status post esophageal dilatation with 60-German. He is slowly showing improvement in swallowing function. He does have some intermittent spells of choking, so I told him to chew the food well and take small bites. This could also be contributed to the patient's tachypnea and underlying lung disease. 2. Cricopharyngeal achalasia, status post esophageal dilatation. 3. Aspiration pneumonia and component of pulmonary fibrosis. He is on antibiotics. He is currently on 3 L nasal cannula. 4. GI prophylaxis with PPI. 5. Anemia. Continue to watch for now, and we will start him on multivitamin once daily. 6. Bowel regimen with Fiorella-Colace. He had a bowel movement yesterday. The above plan was discussed with the patient, and all questions were answered. Please call us for any further questions. cc: MD Robel Pfeiffer MD
[2018-07-23] MEDS: ZOFRAN IV PRN (13:17)
[2018-07-23] MEDS: LOVENOX SUBQ SCH (14:40)
--- NOTE | 2018-07-23 14:46 | PROGRESS NOTE ---
DATE: 07/23/2018 SUBJECTIVE: Mr. Mandujano is doing a little bit better, still wishes his breathing was a little better, but he is eating. Feels like his strength is improving. Bowels are moving okay. OBJECTIVE: Vital Signs: He remains afebrile. Temperature 98.9, pulse 77, respirations 22, blood pressure 114/55. HEENT: Pupils are equal and round. Lungs: Clear in all lung suero. Cardiovascular: Regular rhythm and rate without murmur or S3. Abdomen: Soft. Skin: Warm and dry. Urine output was 3200 mL. ASSESSMENT AND PLAN: 1. Dysphagia, status post esophageal dilatation with a 60-Arabic. Slowly improving, swallowing improving. His p.o. intake is improved. 2. 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 3. Aspiration pneumonia and underlying pulmonary fibrosis. Still on antibiotics. Respiratory status improved and able to wean down his nasal cannula. 4. GI prophylaxis, on PPIs. 5. Anemia, hematocrit and hemoglobin stable. 6. Bowel regimen with Fiorella Colace, seems to be effective. 7. Review of orders: I do not see any change. cc: Robel Andrea MD
[2018-07-23] MEDS: VANCOMYCIN 1,800 MG in NS 250 ML IV SCH (21:14)
[2018-07-23] MEDS: FLOMAX PO SCH (21:14)
[2018-07-23] MEDS: IMDUR PO SCH (21:17)
[2018-07-24] MEDS: MYCELEX TROCHE PO SCH ×4 (03:23→21:49)
[2018-07-24] MEDS: MAXIPIME 2 GM in NS 100 ML IV SCH ×2 (03:23→15:12)
[2018-07-24] MEDS: DUONEB (A & A) INH SCH ×6 (03:25→23:03)
[2018-07-24] MEDS: PERCOCET-5 PO PRN ×3 (03:29→17:21)
[2018-07-24] MEDS: SYNTHROID PO SCH ×2 (05:50→06:02)
[2018-07-24] MEDS: ROBITUSSIN-AC PO PRN (05:52)
[2018-07-24 06:46] LABS: BASO# 0.03 X1000 (0.0-0.2); BASO% 0.4 % (0.0-0.8); EOS# 0.69 X1000 (0.0-0.7); EOS% 8.3 % (0.0-10.0); HEMATOCRIT 34.6 % (42.0-52.0); HEMOGLOBIN 11.3 g/dL (14.0-18.0); IMM GRAN# 0.04 X1000 (0.0-0.04); IMM GRAN% 0.5 % (0.0-0.5); LYMPH# 1.26 X1000 (1.2-3.4); LYMPH% 15.2 % (20.5-51.1); MCH 31.5 PG (27-31); MCHC 32.7 g/dL (33-37); MCV 96.4 FL (81-99); MONO# 1.04 X1000 (0.11-0.59); MONO% 12.6 % (1.7-9.3); MPV 9.6 FL (7.4-10.4); NEUT# 5.22 X1000 (1.4-6.5); PLT 316 X1000 (130-400); RBC 3.59 XMIL (4.7-6.1); RDW 12.8 % (11.5-14.5); WBC 8.28 X1000 (4.8-10.8)
--- NOTE | 2018-07-24 06:54 | Diag Imaging Result Doc PS360 ---
EXAM: CHEST-1 VIEW 07/24/2018 HISTORY: SOB TECHNIQUE: AP portable at 0615 COMMENT: The inspiration is suboptimal. There are still bilateral basilar opacities as there were on 07/21/2017. There has probably been some improvement in the right lower lobe pneumonia since the previous study however. IMPRESSION: Bibasilar atelectasis versus pneumonia. Electronically signed by Enrico Rodriguez 07/24/2018 6:52 AM
[2018-07-24] MEDS: MUCOMYST 20% INH SCH ×2 (07:32→19:20)
[2018-07-24 07:43] LABS: AGAP 11; BUN 15 mg/dL (8-22); CALCIUM 8.9 mg/dL (8.8-10.2); CHLORIDE 94 mmol/L (98-107); COSMO 268; CREATININE 0.9 mg/dL (0.7-1.2); ESTIMATED GFR > 60; GLUCOSE 138 mg/dL (70-104); POTASSIUM 5.2 mmol/L (3.5-5.1); SODIUM 132 mmol/L (136-145); TCO2 27 mmol/L (25-35)
[2018-07-24] MEDS: PLAVIX PO SCH (08:25)
[2018-07-24] MEDS: ASPIRIN PO SCH (08:25)
[2018-07-24] MEDS: PAXIL PO SCH (08:25)
[2018-07-24] MEDS: LIPITOR PO SCH (08:25)
[2018-07-24] MEDS: ICAR-C PO SCH ×2 (08:25→21:49)
[2018-07-24] MEDS: CULTURELLE PO SCH ×2 (08:26→21:49)
[2018-07-24] MEDS: PERICOLACE PO SCH ×2 (08:26→21:49)
[2018-07-24] MEDS: TOPROL XL PO SCH (08:26)
[2018-07-24] MEDS: PRINIVIL PO SCH (08:26)
[2018-07-24] MEDS: CENTRUM SILVER PO SCH (08:26)
[2018-07-24] MEDS: PROTONIX IV SCH ×2 (08:26→21:49)
[2018-07-24] MEDS: SODIUM CHLORIDE 0.9% INJ SCH ×2 (08:26→21:49)
--- NOTE | 2018-07-24 10:11 | GASTROENTEROLOGY PROGRESS NOTE ---
DATE: 07/24/2018 SUBJECTIVE: Resting in bed. He is feeling better. His breathing is improving. He is eating better. OBJECTIVE: Vital signs: Temperature 97.8 degrees, pulse rate 75, respirations 20, blood pressure 120/64, saturating 94% on 3 liters nasal cannula. General appearance: Moderately-built, moderately-nourished, lying in bed, in no acute distress. HEENT: Mild pallor. No icterus. Neck: Supple. Abdomen: Protuberant. No guarding or rebound. Extremities: No cyanosis or clubbing. Neurologic: He is alert, awake, and oriented x3. LABS: Hemoglobin and hematocrit 11.3 and 34.6, white count of 8.2, platelet count of 316,000. Sodium 132, potassium 5.2, chloride 94, bicarb 27, anion gap 11, BUN of 15, creatinine 0.9, glucose of 130, calcium is 8.9. Acute hepatitis panel is nonreactive. RADIOLOGY: Chest x-ray: Bibasilar atelectasis versus pneumonia, right lower lobe. IMPRESSION AND PLAN: 1. Dysphagia status post esophageal dilation. Swallowing is slowly improving. His p.o. intake has improved. 2. Oropharyngeal achalasia, status post esophageal dilation. Aware. 3. Pulmonary fibrosis, aware. 4. Aspiration pneumonia is slowly improving. It has come down to 3 L nasal cannula. 5. Gastrointestinal prophylaxis with proton-pump inhibitors. 6. Anemia. Continue to watch hemoglobin and hematocrit. 7. Deep venous thrombosis prophylaxis. His Lovenox may need to be reduced to 40 mg a day. Initially, was put on 80 mg per day, but is his Ventilation/Perfusion scan was negative for pulmonary embolus. He is also on aspirin and Plavix, so the risk of internal bleeding is high. 8. Bowel regimen with Fiorella-Colace. 9. Will start him on MiraLAX and Dulcolax, as the patient is on narcotics. 10. The above plans were discussed with the patient, and all questions answered. cc: MD Robel Pfeiffer MD
[2018-07-24] MEDS: LOVENOX SUBQ SCH (11:05)
--- NOTE | 2018-07-24 14:18 | PROGRESS NOTE ---
DATE: 07/24/2018 SUBJECTIVE: Mr. Mandujano is getting a little stronger but very slow. Daughter was here, concerned about him going home. So what we will try and pursue is rehab possibilities. Continue physical therapy. OBJECTIVE: Vitals: Temperature 97.8 degrees, pulse 67, respirations 22, blood pressure 112/60. HEENT: Pupils are equal and round. Lungs: Clear in all lung suero. Cardiovascular: Regular rhythm and rate without murmur or S3. Abdomen: Soft. Skin: Warm and dry. LABORATORY STUDIES: Urine output is 5400 mL. Chest x-ray done this morning: Bibasilar atelectasis versus pneumonia was reported. ASSESSMENT AND PLAN: 1. Dysphagia, status post esophageal dilatation. Swallowing is improving. P.o. intake has improved. 2. Oropharyngeal achalasia status post esophageal dilatation. 3. Pulmonary fibrosis, aware. 4. Aspiration pneumonia with underlying chronic obstructive pulmonary disease and pulmonary fibrosis. His gas exchange is improving. Have been able to cut him down to nasal cannula. He will need home oxygen when he goes. We are looking to see if he can be eligible to go to rehab. I think he will be ready to go maybe Tuesday or of this week. 5. Gastrointestinal prophylaxis, on proton pump inhibitors. 6. Anemia. Continue to watch hemoglobin and hematocrit. 7. Continue deep venous thrombosis prophylaxis. Lovenox has been reduced. 8. Continue bowel regimen. Fiorella-Colace. 9. General weakness, deconditioning, obesity. Continue physical therapy. Social service is helping. LABORATORY DATA: Lab from today: White count 8280, hematocrit 34, platelet count 316,000. Chemistries look good. Creatinine is 0.9. Potassium is 5.2, sodium 132. REVIEW OF HIS ORDERS: I do not see any change. I think we can stop the cefepime and then his vancomycin. He has been on that since 07/22/2018 but I will probably leave him on those antibiotics another 48 hours. cc: Robel Andrea MD
[2018-07-24] MEDS: VANCOMYCIN 1,800 MG in NS 250 ML IV SCH (21:48)
[2018-07-24] MEDS: FLOMAX PO SCH (21:48)
[2018-07-24] MEDS: IMDUR PO SCH (21:49)
[2018-07-24] MEDS: MIRALAX PO SCH (21:50)
--- NOTE | 2018-07-24 22:10 | PULMONOLOGY PROGRESS NOTE ---
DATE: 07/24/2018 SUBJECTIVE: Patient reports he has ambulated some in the hallway. His swallowing has improved. He has no significant sputum production. OBJECTIVE: The patient has been afebrile for the last 24 hours. Blood pressure 110/70, heart rate 66, respiratory rate 18, oxygen saturation 98%.HEENT: Pupils are equal and reactive. Oropharynx is clear. Neck: Supple. Chest: Reveals crackles in the lung bases. Cardiac: S1-S2. Abdomen: Obese and soft. Extremities: Without edema. LABORATORIES: Chest x-ray reveals bibasilar infiltrates with some improvement in the right base over the last 3 days. White blood count 8.3, hemoglobin 11.2, platelet count 316,000. Sodium 132, potassium 5.2, chloride 94, bicarbonate 27, BUN 15, creatinine 0.9. IMPRESSION: 73-year-old with aspiration pneumonia, esophageal stricture status post dilation, improving dysphagia, pulmonary fibrosis, hypoxemic respiratory failure with slow clinical improvement. RECOMMENDATIONS: 1. Continue safe swallowing practices. 2. Continue current antibiotic regimen. 3. Mobilize as tolerated. 4. The patient may require a rehab stay prior to returning home. cc: Mario Wu MD
[2018-07-25] MEDS: MAXIPIME 2 GM in NS 100 ML IV SCH ×2 (03:09→15:46)
[2018-07-25] MEDS: DUONEB (A & A) INH SCH ×6 (03:30→22:45)
[2018-07-25] MEDS: MYCELEX TROCHE PO SCH ×4 (03:54→20:39)
[2018-07-25] MEDS: SYNTHROID PO SCH (06:55)
[2018-07-25 07:33] LABS: BASO# 0.05 X1000 (0.0-0.2); BASO% 0.5 % (0.0-0.8); EOS# 0.64 X1000 (0.0-0.7); EOS% 6.7 % (0.0-10.0); HEMATOCRIT 35.1 % (42.0-52.0); HEMOGLOBIN 11.3 g/dL (14.0-18.0); IMM GRAN# 0.06 X1000 (0.0-0.04); IMM GRAN% 0.6 % (0.0-0.5); LYMPH# 1.28 X1000 (1.2-3.4); LYMPH% 13.5 % (20.5-51.1); MCH 31.2 PG (27-31); MCHC 32.2 g/dL (33-37); MONO# 1.06 X1000 (0.11-0.59); MONO% 11.2 % (1.7-9.3); MPV 9.4 FL (7.4-10.4); NEUT% 67.5 % (42.2-75.2); PLT 323 X1000 (130-400); RBC 3.62 XMIL (4.7-6.1); WBC 9.49 X1000 (4.8-10.8)
[2018-07-25] MEDS: MUCOMYST 20% INH SCH ×2 (07:35→19:34)
[2018-07-25] MEDS: PERCOCET-5 PO PRN ×3 (07:38→23:17)
[2018-07-25 07:51] LABS: AGAP 8; ALB/GLOB RATIO 0.8; ALBUMIN 3.2 g/dL (3.5-5.0); ALKALINE PHOSPHATASE 65 U/L (32-122); BUN 15 mg/dL (8-22); CHLORIDE 94 mmol/L (98-107); COSMO 267; CREATININE 0.8 mg/dL (0.7-1.2); ESTIMATED GFR > 60; GLUCOSE 137 mg/dL (70-104); GOT 23 U/L (10-34); GPT 29 U/L (10-44); MAGNESIUM 1.9 mg/dL (1.5-2.7); POTASSIUM 5.8 mmol/L (3.5-5.1); SODIUM 132 mmol/L (136-145); TCO2 30 mmol/L (25-35); TOTAL BILIRUBIN 0.55 mg/dL (0.20-1.00); TOTAL PROTEIN 7.2 g/dL (6.3-8.3)
[2018-07-25] MEDS ORDERED: ALBUTEROL 0.5% INH CONC FOR HYPERKALEMIA INH ONE (08:10)
[2018-07-25] MEDS ORDERED: D50W SYRINGE IV ONE (08:11)
[2018-07-25] MEDS ORDERED: SODIUM BICARBONATE 8.4% IV ONE (08:11)
[2018-07-25] MEDS ORDERED: HUMULIN R IV ONE (08:11)
[2018-07-25] MEDS: PROTONIX IV SCH ×2 (10:05→20:39)
[2018-07-25] MEDS: SODIUM CHLORIDE 0.9% INJ SCH (10:05)
[2018-07-25] MEDS: PERICOLACE PO SCH ×2 (10:06→20:48)
[2018-07-25] MEDS: LOVENOX SUBQ SCH (10:06)
[2018-07-25] MEDS: CULTURELLE PO SCH ×2 (10:06→20:39)
[2018-07-25] MEDS: PLAVIX PO SCH (10:06)
[2018-07-25] MEDS: CENTRUM SILVER PO SCH (10:06)
[2018-07-25] MEDS: LIPITOR PO SCH (10:06)
[2018-07-25] MEDS: PAXIL PO SCH (10:06)
[2018-07-25] MEDS: ASPIRIN PO SCH (10:07)
[2018-07-25] MEDS: PRINIVIL PO SCH (10:07)
[2018-07-25] MEDS: TOPROL XL PO SCH (10:07)
[2018-07-25] MEDS: ICAR-C PO SCH ×2 (10:07→20:39)
[2018-07-25] MEDS: MIRALAX PO SCH ×2 (11:07→20:39)
--- NOTE | 2018-07-25 12:46 | GASTROENTEROLOGY PROGRESS NOTE ---
DATE: 07/25/2018 SUBJECTIVE: No acute overnight events. Afebrile. The patient reports some swallowing difficulties with solid foods with mild coughing, although he is tolerating a diet at this time. Reports some mild dyspnea. No nausea, vomiting, abdominal pain. Bowel sounds present. The patient is having bowel movements. OBJECTIVE: Vital Signs: Temperature 97.6, heart rate 76, respiratory rate 16, saturating 96% on 4 L nasal cannula. Generally, patient is awake, alert, oriented, in no acute distress. HEENT anicteric. Moist mucous membranes. Neck: No lymphadenopathy. Cardiac: Regular rate and rhythm. No murmurs, rubs, or gallops. Lungs: Decreased breath sounds at bases bilaterally. Coarse elsewhere. Mild wheezing on the right on expiration. Abdomen obese, soft, nontender, nondistended. Normoactive bowel sounds. No rebound or guarding. Lower extremities: No clubbing, cyanosis, edema. Neuro: Nonfocal. ASSESSMENT AND PLAN: 1. Mr. Mandujano is a 73-year-old gentleman who presents to [facility] with dysphagia status post esophagogastroduodenoscopy with dilation, who is slowly improving from a swallowing standpoint. Recommend continued dysphagia precautions, proton pump inhibitor for gastrointestinal prophylaxis. 2. Oropharyngeal achalasia, status post dilation as above. 3. Pulmonary fibrosis. Continue pulmonary support as per primary team. 4. Aspiration pneumonia. Again, also slowly improving. Still requires supplemental O2. 5. Anemia. Hemoglobin stable. No overt bleeding. 6. Constipation. Continue bowel regimen. PLANS: Discussed with patient. All questions answered. We will follow with you. Please call with any questions or concerns.
[2018-07-25] MEDS: LACTULOSE PO SCH (20:39)
[2018-07-25] MEDS: IMDUR PO SCH (20:40)
[2018-07-25] MEDS: FLOMAX PO SCH (20:40)
--- NOTE | 2018-07-25 20:42 | PROGRESS NOTE ---
DATE: 07/25/2018 SUBJECTIVE: The patient is resting comfortably in bed. He states that he feels short of breath with minimal exertion. OBJECTIVE: Vital Signs: Temperature 98.5, blood pressure 93/47, heart rate 20 , O2 sats 97% on 4 L nasal cannula. Urine output 1.8 L. General: This is a chronically ill- appearing elderly male lying in bed in no acute distress. Heart: S1, S2 normal. Lungs: Equal air entry bilaterally. Diminished breath sounds at the bases. Abdomen: Positive bowel sounds. Soft, nontender, nondistended. Extremities: No edema, no cyanosis. Neurologic: The patient is alert and oriented x 3. LABS: White blood cell count 9.4, hemoglobin 11, hematocrit 35, platelets 323, 000. Sodium 132, potassium 5.8, chloride 94, CO2 30, BUN 15, creatinine 0.8, glucose 137. ASSESSMENT AND PLAN: 1. Acute hypoxemic respiratory failure. The patient is being treated for aspiration pneumonia. Will continue with antibiotic therapy and monitor the patient closely for improvement. 2. Sobia esophagitis. The patient is currently on antifungal treatment. Will continue on the current regimen. 3. Oropharyngeal achalasia status post esophageal dilation. Aware. GI is following. 4. Aspiration pneumonia. Continue with antibiotic therapy. 5. Pulmonary fibrosis. Aware. 6. Anemia. Stable. 7. Hyperkalemia. Will treat the potassium and follow up closely. The patient' s medications were reviewed. 8. Hyponatremia. Unchanged. 9. Hypothyroidism. Continue on Synthroid. 10. Constipation. Continue with scheduled laxative therapy as directed by GI. 11. BPH. Continue on Flomax. 12. DVT prophylaxis. Continue on Lovenox. 13. Disposition. The patient is deconditioned. We will continue with physical therapy. [facility] consult has been placed for inpatient rehab placement. cc: Silvina Poon MD MTDD
[2018-07-25] MEDS: VANCOMYCIN 1,800 MG in NS 250 ML IV SCH (20:48)
[2018-07-26] MEDS: MYCELEX TROCHE PO SCH ×4 (02:43→20:15)
[2018-07-26] MEDS: MAXIPIME 2 GM in NS 100 ML IV SCH ×3 (02:45→14:46)
[2018-07-26] MEDS: DUONEB (A & A) INH SCH ×6 (03:15→23:16)
[2018-07-26] MEDS: SYNTHROID PO SCH (06:32)
[2018-07-26 07:03] LABS: BASO# 0.05 X1000 (0.0-0.2); BASO% 0.5 % (0.0-0.8); EOS# 0.55 X1000 (0.0-0.7); HEMATOCRIT 33.4 % (42.0-52.0); HEMOGLOBIN 10.8 g/dL (14.0-18.0); IMM GRAN# 0.05 X1000 (0.0-0.04); IMM GRAN% 0.5 % (0.0-0.5); LYMPH# 1.35 X1000 (1.2-3.4); LYMPH% 14.8 % (20.5-51.1); MCH 31.2 PG (27-31); MCHC 32.3 g/dL (33-37); MCV 96.5 FL (81-99); MONO# 1.29 X1000 (0.11-0.59); MONO% 14.2 % (1.7-9.3); MPV 9.6 FL (7.4-10.4); NEUT# 5.81 X1000 (1.4-6.5); PLT 286 X1000 (130-400); RBC 3.46 XMIL (4.7-6.1); RDW 13.1 % (11.5-14.5)
--- NOTE | 2018-07-26 07:23 | Diag Imaging Result Doc PS360 ---
EXAM: FLAT/UPRIGHT ABD/1 VIEW CHEST INDICATION: pneumonia/constipation TECHNIQUE: 3 views COMPARISON: 07/24/2018 FINDINGS: There are a few mildly distended loops of small bowel in the central abdomen that are nonspecific, likely mild ileus. Normal gas is seen in the colon. There is no evidence of large volume free abdominal gas. There is lumbar fusion hardware and a spinal stimulator. There are a few dense radiopaque foci in the pelvis and the left lower quadrant that may represent old barium trapped within colonic diverticula. Bibasilar consolidations are essentially stable. No new consolidation is identified. Cardiac silhouette is stable. IMPRESSION: 1.Nonspecific mild distention of a few loops of small bowel. 2.Stable chest. Electronically signed by Jimy Luevano 07/26/2018 7:20 AM
[2018-07-26 07:48] LABS: AGAP 11; ALB/GLOB RATIO 0.8; ALBUMIN 2.8 g/dL (3.5-5.0); ALKALINE PHOSPHATASE 62 U/L (32-122); BUN 15 mg/dL (8-22); CALCIUM 8.5 mg/dL (8.8-10.2); CHLORIDE 94 mmol/L (98-107); COSMO 269; CREATININE 0.8 mg/dL (0.7-1.2); ESTIMATED GFR > 60; GLUCOSE 135 mg/dL (70-104); GOT 24 U/L (10-34); GPT 30 U/L (10-44); POTASSIUM 4.6 mmol/L (3.5-5.1); SODIUM 133 mmol/L (136-145); TCO2 28 mmol/L (25-35); TOTAL BILIRUBIN 0.51 mg/dL (0.20-1.00); TOTAL PROTEIN 6.4 g/dL (6.3-8.3)
[2018-07-26] MEDS: MUCOMYST 20% INH SCH ×2 (07:52→19:25)
[2018-07-26] MEDS: LOVENOX SUBQ SCH (08:49)
[2018-07-26] MEDS: CENTRUM SILVER PO SCH (08:50)
[2018-07-26] MEDS: TOPROL XL PO SCH ×2 (08:50→14:51)
[2018-07-26] MEDS: ASPIRIN PO SCH (08:50)
[2018-07-26] MEDS: PLAVIX PO SCH (08:50)
[2018-07-26] MEDS: CULTURELLE PO SCH ×2 (08:50→20:14)
[2018-07-26] MEDS: LACTULOSE PO SCH (08:50)
[2018-07-26] MEDS: PERICOLACE PO SCH (08:50)
[2018-07-26] MEDS: PRINIVIL PO SCH ×2 (08:50→14:51)
[2018-07-26] MEDS: ICAR-C PO SCH ×2 (08:50→20:15)
[2018-07-26] MEDS: SODIUM CHLORIDE 0.9% INJ SCH ×2 (08:51→20:15)
[2018-07-26] MEDS: PAXIL PO SCH (08:51)
[2018-07-26] MEDS: MIRALAX PO SCH (08:51)
[2018-07-26] MEDS: LIPITOR PO SCH (08:51)
[2018-07-26] MEDS: PROTONIX IV SCH ×2 (08:51→20:15)
[2018-07-26] MEDS: PERCOCET-5 PO PRN ×2 (08:58→18:22)
--- NOTE | 2018-07-26 11:18 | GASTROENTEROLOGY PROGRESS NOTE ---
DATE: 07/26/2018 SUBJECTIVE: No acute overnight events. Afebrile. No nausea, vomiting, fevers. The patient reports continued but improving shortness of breath. He does report coughing with eating as well as copious sputum. No abdominal pain. Having bowel movements with bowel regimen. OBJECTIVE: Vital Signs: Temperature of 98.8, heart rate 77, respiratory rate 14, blood pressure 106/55, oxygen saturation 97% on 3 L nasal cannula. General: Awake, alert, oriented, in no acute distress. HEENT: Moist mucous membranes. Sclerae anicteric. Neck: No JVD. No lymphadenopathy. Cardiac: Regular rate and rhythm. No murmurs. Lungs: Increased work of breathing. Mild tachypnea. Decreased breath sounds at the right base, coarse. No wheezing. Minimal crackles. Abdomen obese, soft, nontender, normoactive bowel sounds. No rebound or guarding. No ascites. Lower Extremities: No clubbing, cyanosis, or edema. Neuro: Nonfocal. LABORATORY DATA: Labs from 07/25/2018 at 2000: White count of 9.1, hemoglobin 10.8, platelets of 286,000. Sodium 133, potassium 4.6, chloride 94, CO2 of 28. BUN 15, creatinine 0.8. Albumin of 2.8, otherwise, LFTs are normal. KUB shows some mild distention of a few loops of small bowel. Otherwise, no ileus or obstruction. ASSESSMENT AND PLAN: 1. Mr. Mandujano is a 73-year-old gentleman who presents to the GI service with dysphagia status post esophagogastroduodenoscopy with dilation who continues to improve slowly from a swallowing standpoint. He continues to have some dysphagia, particularly to sputum and food. I suspect there is a component of oropharyngeal dysphagia related to his swallowing difficulty. We will ask for speech therapy to revisit the patient and offer recommendations in regards to diet. He will continue on a proton pump inhibitor for now for GI prophylaxis. 2. Pulmonary fibrosis. Continue pulmonary support as per primary team. 3. Aspiration pneumonia, currently on antibiotics; Defer to primary team. 4. Anemia. Hemoglobin is stable. No overt bleeding. 5. Constipation, improved. Continue bowel regimen. Plan and findings discussed with the patient. All questions were answered. We will follow the patient. He is to call with questions or concerns. [facility]
[2018-07-26] MEDS: IMDUR PO SCH (20:15)
[2018-07-26] MEDS: VANCOMYCIN 1,800 MG in NS 250 ML IV SCH (20:25)
[2018-07-26] MEDS: FLOMAX PO SCH (21:59)
--- NOTE | 2018-07-27 00:19 | PROGRESS NOTE ---
DATE: 07/26/2018 SUBJECTIVE: The patient is resting comfortably in bed. He states that he feels a lot better today. The shortness of breath has improved. He denies having any chest pain, headache, or dizziness. OBJECTIVE: Vital Signs: Temperature 97.6 degrees, blood pressure 110/56, heart rate 73, respirations 18, O2 saturation 94% on 3 L nasal cannula. Urine output 2.4 L. General: This is an overweight male, lying in bed, in no acute distress. Head: Normocephalic, atraumatic. Heart: S1, S2 normal. Regular rate and rhythm. Lungs: Equal air entry bilaterally. Diminished breath sounds at the bases. No crackles. No wheezing. Abdomen: Positive bowel sounds. Soft, nontender, nondistended. Extremities: Trace pedal edema. No cyanosis. No calf tenderness. Neurologic: The patient is alert and oriented x4. No focal neurologic deficits noted. LABS: White blood cell count 9.1, hemoglobin 10, hematocrit 33, platelets 286,000. Sodium 133, potassium 4.6, chloride 94, CO2 28, BUN 15, creatinine 0.8, glucose 135. Abdominal x-ray shows bibasilar consolidations. Mild ileus. ASSESSMENT AND PLAN: 1. Acute hypoxemic respiratory failure. We will continue to treat the underlying pneumonia, and monitor the patient closely for improvement. 2. Aspiration pneumonia. Slowly improving. Continue on cefepime and vancomycin. 3. Oropharyngeal achalasia, status post esophageal dilation. Aware. Continue with aspiration precautions. 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 5. Benign prostatic hypertrophy. Continue on Flomax. 6. Iron deficiency anemia. Continue on Icar C. 7. Hypothyroidism. Continue on Synthroid. 8. Anemia. Stable. 9. Hyponatremia. Stable. 10. Deep vein thrombosis prophylaxis. Continue on Lovenox. 11. Disposition. The patient will need inpatient rehabilitation. Wood Panel Inspector is working on rehab placement for the patient. Continue with physical therapy. cc: Silvina Poon MD
[2018-07-27] MEDS: PERCOCET-5 PO PRN ×3 (01:57→23:46)
[2018-07-27] MEDS: MAXIPIME 2 GM in NS 100 ML IV SCH ×4 (01:58→14:16)
[2018-07-27] MEDS: MYCELEX TROCHE PO SCH ×4 (01:58→20:37)
[2018-07-27] MEDS: DUONEB (A & A) INH SCH ×6 (03:15→23:10)
[2018-07-27] MEDS: SYNTHROID PO SCH ×2 (05:50→07:31)
[2018-07-27 06:17] LABS: BASO# 0.04 X1000 (0.0-0.2); BASO% 0.4 % (0.0-0.8); EOS# 0.34 X1000 (0.0-0.7); EOS% 3.8 % (0.0-10.0); HEMATOCRIT 32.9 % (42.0-52.0); HEMOGLOBIN 10.7 g/dL (14.0-18.0); IMM GRAN# 0.04 X1000 (0.0-0.04); IMM GRAN% 0.4 % (0.0-0.5); LYMPH# 1.19 X1000 (1.2-3.4); LYMPH% 13.2 % (20.5-51.1); MCH 31.4 PG (27-31); MCHC 32.5 g/dL (33-37); MCV 96.5 FL (81-99); MONO# 0.95 X1000 (0.11-0.59); MONO% 10.5 % (1.7-9.3); MPV 9.3 FL (7.4-10.4); NEUT# 6.46 X1000 (1.4-6.5); NEUT% 71.7 % (42.2-75.2); PLT 285 X1000 (130-400); RBC 3.41 XMIL (4.7-6.1); RDW 13.2 % (11.5-14.5); WBC 9.02 X1000 (4.8-10.8)
[2018-07-27 06:34] LABS: AGAP 10; ALB/GLOB RATIO 0.8; ALBUMIN 3.1 g/dL (3.5-5.0); ALKALINE PHOSPHATASE 60 U/L (32-122); BUN 14 mg/dL (8-22); CALCIUM 8.5 mg/dL (8.8-10.2); CHLORIDE 97 mmol/L (98-107); COSMO 272; CREATININE 0.7 mg/dL (0.7-1.2); ESTIMATED GFR > 60; GLUCOSE 188 mg/dL (70-104); GOT 24 U/L (10-34); GPT 33 U/L (10-44); POTASSIUM 4.3 mmol/L (3.5-5.1); SODIUM 133 mmol/L (136-145); TCO2 26 mmol/L (25-35); TOTAL BILIRUBIN 0.37 mg/dL (0.20-1.00); TOTAL PROTEIN 6.9 g/dL (6.3-8.3)
[2018-07-27] MEDS: LACTULOSE PO SCH ×3 (07:00→20:37)
[2018-07-27] MEDS: MIRALAX PO SCH ×3 (07:01→20:37)
[2018-07-27] MEDS: PERICOLACE PO SCH ×3 (07:01→20:37)
[2018-07-27] MEDS: MUCOMYST 20% INH SCH ×2 (07:59→19:10)
[2018-07-27] MEDS: PAXIL PO SCH (08:33)
[2018-07-27] MEDS: LIPITOR PO SCH (08:33)
[2018-07-27] MEDS: ICAR-C PO SCH ×2 (08:33→20:37)
[2018-07-27] MEDS: PRINIVIL PO SCH (08:33)
[2018-07-27] MEDS: CULTURELLE PO SCH ×2 (08:33→20:37)
[2018-07-27] MEDS: PROTONIX IV SCH ×2 (08:34→20:37)
[2018-07-27] MEDS: PLAVIX PO SCH (08:34)
[2018-07-27] MEDS: ASPIRIN PO SCH (08:34)
[2018-07-27] MEDS: LOVENOX SUBQ SCH ×2 (08:34→11:29)
[2018-07-27] MEDS: TOPROL XL PO SCH (08:34)
[2018-07-27] MEDS: CENTRUM SILVER PO SCH (08:34)
[2018-07-27] MEDS: ROBITUSSIN-AC PO PRN (13:26)
--- NOTE | 2018-07-27 14:33 | GASTROENTEROLOGY PROGRESS NOTE ---
DATE: 07/27/2018 SUBJECTIVE: Resting in bed. He was able to eat his breakfast this morning. His daughter was at bedside. His breathing is slightly improved. He does get short of breath with exertion. OBJECTIVE: Vital signs: Temperature 98.6, pulse rate 76, respirations 18, blood pressure 127/79, saturating 94% on 3 liters nasal cannula. General appearance: Moderately- built, moderately- nourished, lying in bed, in no acute distress. HEENT: Mild pallor. No icterus. Neck: Supple. Abdomen: Protuberant. No guarding. Extremities: No cyanosis or clubbing. Neurologic: He is alert, awake, and oriented x3. LABS: Hemoglobin and hematocrit 10.7 and 32.9, white count of 9.02, platelet count of 285,000. Sodium 133, potassium 4.3, chloride 97, bicarb 26, anion gap 10, BUN of 14, creatinine 1.7, glucose of 188, calcium is 8.5, total bilirubin is 0.37, AST 24, ALT 23, alkaline phosphatase 64, total protein 6.9, albumin 3.1. IMPRESSION AND PLAN: 1. Dysphagia status post esophageal dilation, slowly improving. 2. Gastrointestinal prophylaxis with proton pump inhibitors. 3. Anemia. Continue iron-C b.i.d., multivitamin once a day. 4. Cricopharyngeal achalasia, status post esophageal dilation. 5. Constipation. He will continue on lactulose and MiraLAX. 6. Pulmonary fibrosis and respiratory failure. He is using chronic oxygen. He is being followed by pulmonary team. 7. Coronary disease. He is on Plavix. 8. Deep venous thrombosis prophylaxis with Lovenox. The above plan was discussed with the patient and family and all questions were answered. Please call with any further questions. cc: MD Silvina Pfeiffer MD MTDD
--- NOTE | 2018-07-27 19:23 | PROGRESS NOTE ---
DATE: 07/27/2018 SUBJECTIVE: The patient is resting comfortably in bed. He has no complaints. OBJECTIVE: Vital Signs: Temperature 98.1, blood pressure 119/58, heart rate 77, respirations 21, O2 sats 100% on 3 L nasal cannula. General: This is a chronically ill-appearing elderly male lying in bed in no acute distress. Heart: S1, S2 normal. Regular rate and rhythm. Lungs: Equal air entry bilaterally. No crackles. No rales. Abdomen: Positive bowel sounds. Soft, nontender, nondistended. Extremities: No edema, no cyanosis. Neurologic: The patient is alert and oriented x 3. LABS: Hemoglobin 10, hematocrit 32, platelets 285,000. Sodium 133, potassium 4.3, chloride 97, CO2 26, BUN 14, creatinine 0.7, glucose 188, calcium 8.5. ASSESSMENT AND PLAN: 1. Acute hypoxemic respiratory failure. Will continue to treat the pneumonia. We will likely transition to oral antibiotics tomorrow. 2. Aspiration pneumonia. Will order a chest x-ray to be done tomorrow. If improved, will switch the patient to oral antibiotics. 3. Oropharyngeal achalasia status post esophageal dilation. Aware. 4. Sobia esophagitis. Continue on the current antifungal therapy. 5. Iron deficiency anemia. Continue on Icar C. 6. Hypothyroidism. Continue on Synthroid. 7. BPH. Continue on Flomax. 8. Anemia. Stable. 9. Disposition. The patient should be stable for discharge to rehab tomorrow. cc: Silvina Poon MD
[2018-07-27] MEDS: IMDUR PO SCH (20:37)
[2018-07-27] MEDS: FLOMAX PO SCH (20:37)
[2018-07-27] MEDS: VANCOMYCIN 1,800 MG in NS 250 ML IV SCH (22:01)
--- NOTE | 2018-07-28 01:28 | PULMONOLOGY PROGRESS NOTE ---
DATE: 07/27/2018 SUBJECTIVE: The patient reports he is having some difficulty with swallowing, but it continues to improve. He has a cough, but no significant sputum. He does have dyspnea with any ambulation. OBJECTIVE: Vital Signs: The patient has been afebrile for the last 24 hours. Blood pressure 139/66. Heart rate 84, respiratory rate 19 and unlabored. Oxygen saturation 100% on 3 L per nasal cannula. HEENT: Pupils are equal and reactive. Oropharynx is clear. Neck: Supple. Chest: Reveals crackles in the lung bases, but no significant rhonchi. Cardiac: S1-S2. Abdomen: Obese and soft. Extremities: Trace edema. LABORATORIES: White blood count 9.02, hemoglobin 10.7, platelet count 285,000. Sodium 133, potassium 4.3, chloride 97, bicarbonate 26. BUN 14, creatinine 0.7. Albumin has increased to 3.1. IMPRESSION: A 73-year-old with aspiration pneumonia, cricopharyngeal achalasia/stricture, status post dilation, pulmonary fibrosis, with hypoxemic respiratory failure. The patient's chest reveals crackles, consistent with some underlying fibrosis, but his rhonchi had resolved. His oxygen saturation is doing well on 3 L per nasal cannula. RECOMMENDATIONS: 1. Continue to wean oxygen as tolerated. 2. Continue safe swallowing practices. 3. Consider discontinuing antibiotics or changing to an oral agent. 4. Followup chest x-ray on 07/28. 5. From a pulmonary standpoint, I believe he can be transferred to a rehab stay. cc: Mario Wu MD
[2018-07-28] MEDS: MAXIPIME 2 GM in NS 100 ML IV SCH ×2 (03:19→14:17)
[2018-07-28] MEDS: DUONEB (A & A) INH SCH ×3 (03:42→19:00)
[2018-07-28] MEDS: SYNTHROID PO SCH ×2 (05:38→06:33)
[2018-07-28 06:22] LABS: HEMATOCRIT 34.5 % (42.0-52.0); HEMOGLOBIN 11.2 g/dL (14.0-18.0); MCH 31.7 PG (27-31); MCHC 32.5 g/dL (33-37); MCV 97.7 FL (81-99); MPV 9.4 FL (7.4-10.4); RBC 3.53 XMIL (4.7-6.1); RDW 13.3 % (11.5-14.5); WBC 8.02 X1000 (4.8-10.8)
[2018-07-28 07:34] LABS: AGAP 12; BUN 11 mg/dL (8-22); CALCIUM 8.4 mg/dL (8.8-10.2); CHLORIDE 96 mmol/L (98-107); COSMO 272; CREATININE 0.7 mg/dL (0.7-1.2); ESTIMATED GFR > 60; GLUCOSE 136 mg/dL (70-104); POTASSIUM 4.8 mmol/L (3.5-5.1); SODIUM 135 mmol/L (136-145); TCO2 27 mmol/L (25-35)
[2018-07-28] MEDS: MUCOMYST 20% INH SCH ×2 (07:44→19:00)
[2018-07-28 08:41] LABS: ALLEN TEST YES; BE 1.7 mmoll (-3.0-3.0); BLOOD TYPE ARTERIAL; HCO3-(ACT) 25.9 mmoll (20.0-26.0); METHB 0.8 % (0.0-1.5); O2(CT) 14.7 mL/dL (15.0-23.0); PCO2(98.6) 38 mmHg (35-45); SAMPLE BLOOD; SAO2 84.9 % (95.0-100.0); THB 12.7 g/dL (11.5-17.4); pH(98.6) 7.44 (7.35-7.45)
[2018-07-28 08:44] LABS: MODALITY CANNULA
[2018-07-28 08:46] LABS: O2HB 82.2 % (95.0-99.0)
[2018-07-28 08:47] LABS: PO2(98.6) 46 mmHg (60-100)
[2018-07-28] MEDS ORDERED: NITROGLYCERIN SL ONE (08:51)
--- NOTE | 2018-07-28 08:52 | EKG Report ---
Test Performed on : 07/28/2018 08:36:32 AM Test Reason : chest pain Blood Pressure : / mmHG Vent. Rate : 091 BPM Atrial Rate : 091 BPM P-R Int : 182 ms QRS Dur : 114 ms QT Int : 374 ms P-R-T Axes : 028 -62 048 degrees QTc Int : 460 ms Sinus rhythm. with occasional premature ventricular complexes. Possible Left atrial enlargement Left anterior fascicular block Inferior infarct , old Abnormal ECG When compared with ECG of 17-JUL-2018 14:02, Nonspecific T wave abnormality has replaced inverted T waves in Lateral leads Confirmed by Kaila MCCLELLAN, Kunal Vela ([id number]) on 07/29/2018 10:12:47 AM
[2018-07-28] MEDS: TOPROL XL PO SCH (09:02)
[2018-07-28] MEDS: MYCELEX TROCHE PO SCH ×4 (09:03→21:42)
[2018-07-28] MEDS: NITROGLYCERIN SL PRN (09:08)
[2018-07-28] MEDS ORDERED: ASPIRIN PO ONE (09:17)
[2018-07-28] MEDS: LACTULOSE PO SCH ×2 (09:25→21:33)
[2018-07-28] MEDS: ICAR-C PO SCH ×2 (09:26→21:33)
[2018-07-28] MEDS: CENTRUM SILVER PO SCH (09:26)
[2018-07-28] MEDS: ASPIRIN PO SCH (09:26)
[2018-07-28] MEDS: CULTURELLE PO SCH ×2 (09:26→21:32)
[2018-07-28] MEDS: LIPITOR PO SCH (09:26)
[2018-07-28] MEDS: PLAVIX PO SCH (09:27)
[2018-07-28] MEDS: PERICOLACE PO SCH ×2 (09:27→21:33)
[2018-07-28] MEDS: PAXIL PO SCH (09:27)
[2018-07-28] MEDS: PRINIVIL PO SCH ×2 (09:27→09:28)
[2018-07-28] MEDS: MIRALAX PO SCH ×2 (09:27→21:32)
[2018-07-28] MEDS: PROTONIX IV SCH ×2 (09:30→21:32)
[2018-07-28] MEDS: LOVENOX SUBQ SCH (09:30)
[2018-07-28] MEDS: MORPHINE IV PRN (11:20)
--- NOTE | 2018-07-28 11:45 | GASTROENTEROLOGY PROGRESS NOTE ---
DATE: 07/28/2018 SUBJECTIVE: The patient this morning developed acute respiratory decompensation with hypoxia down to the 60s requiring increasing O2 requirements. At the time of interview, the patient was having an EKG performed and primary team was at bedside. OBJECTIVE: Vital signs: Temperature 98.2, pulse rate 71, respiratory rate 31, blood pressure 138/79. The patient's O2 saturation is 100% on BiPAP. General: The patient is awake, alert, in moderate respiratory distress. HEENT: Sclerae anicteric. Neck: No lymphadenopathy. Cardiac: Regular rate. Lungs: Increased work of breathing, tachypnea. Abdomen: Obese. Lower extremities: No clubbing, cyanosis, or edema. Neurologic: Nonfocal. LABS: Hemoglobin from yesterday was 11.2. ProBNP from yesterday was 491. Arterial blood gas this morning: pH 7.44, pCO2 of 38, pO2 of 46, IMAGING: No new imaging. ASSESSMENT AND PLAN: Mr. Mandujano is a 77-year-old gentleman who presented to the GI Service with dysphagia status post EGD with dilation. His dysphagia had been improving slowly throughout his hospitalization. However, today he appears to have an acute respiratory decompensation with hypoxia requiring BiPAP initiation. At this time, there are no acute GI issues. The patient should continue PPI once daily and bowel regimen for constipation. We will lean on Pulmonary and the primary team to reassess his respiratory status as patient is currently being treated for an aspiration pneumonia. There is a question of whether he is continuing to aspirate despite dysphagia precautions. He is currently on antibiotics. For his anemia, his hemoglobin is stable, no overt bleeding. For his constipation, continue bowel regimen. We will follow with you. Please call with any questions or concerns. [facility]
--- NOTE | 2018-07-28 13:04 | CARDIOLOGY PROGRESS NOTE ---
DATE: 07/28/2018 SUBJECTIVE: Mr. Mandujano apparently had an episode of choking and coughing that occurred while he was sitting on the side of the bed. This was apparently a pretty severe episode that resulted in some hypoxia. Subsequently, he developed some substernal pressure that had gradually resolved over several minutes. PHYSICAL EXAMINATION: Vital Signs: He is afebrile. His heart rate is 70. His blood pressure is 143/89. General: He is in no acute distress. Cardiovascular: He sounds to be in a regular rate and rhythm. I do not hear any obvious murmurs. He has no S3. He has no lower extremity edema. Chest: His chest exam is clear bilaterally. No increased work of breathing. Abdomen: Soft, nontender. PERTINENT DATA: Sodium 135, potassium 4.8. BUN 11, creatinine 0.7. Troponin is negative. His EKG was reviewed by me and did not appear to show any new changes or acute ischemic findings. ASSESSMENT: Mr. Mandujano is a 73-year-old gentleman with a history of aspiration pneumonia, as well as a cricopharyngeal stricture with previous dilatation. PLAN: His episode of chest discomfort seems to be GI/pulmonary in etiology. His enzymes are negative. His EKG is negative. We will continue to follow those and check an EKG in the morning. If this is unremarkable, I would treat it as a complication related to a coughing episode. cc: Jesus Ko MD
[2018-07-28] MEDS: VANCOMYCIN 1,800 MG in NS 250 ML IV SCH (15:19)
--- NOTE | 2018-07-28 19:48 | PROGRESS NOTE ---
DATE: 07/28/2018 SUBJECTIVE: This morning the patient was noted to have respiratory distress after having a coughing spell. Shortly thereafter, he developed 10/10 chest pain. The patient was given 1 sublingual nitroglycerin, which resulted in improvement in the chest pain, and he was placed on a nonrebreather mask and then ultimately placed on BiPAP and transferred to CICU. OBJECTIVE: Vital Signs: Temperature 98.7 degrees, blood pressure 124/77, heart rate 73, respirations 18, and O2 saturation 96% on a nonrebreather mask. General: This is a chronically ill-appearing elderly male, lying in bed, in no acute distress. Heart: S1 and S2 normal. Regular rate and rhythm. Lungs: Equal air entry bilaterally. No wheezing. No rales. Abdomen: Positive bowel sounds. Soft, nontender, nondistended. Extremities: No edema, no cyanosis. Neurologic: The patient is alert and oriented x4. LABORATORY DATA: White blood cell count 8, hemoglobin 11, hematocrit 34, platelets 285,000. ABG with pH of 7.4, pCO2 of 38, PO2 of 46, bicarbonate 25. Sodium 135, potassium 4.8, chloride 96, CO2 of 27, BUN 11, creatinine 0.7, glucose 136. Troponin less than 0.01 and proBNP 491. CK 48. ASSESSMENT AND PLAN: 1. Acute on chronic hypoxemic respiratory failure. The patient appeared to have recovered from his event earlier this morning. We will continue with antibiotic therapy and bronchodilator therapy. We will await further recommendations from the scientific process operator. 2. Aspiration pneumonia. Continue with antibiotic therapy. We will order a repeat chest x-ray for tomorrow morning. 3. Chest pain. Resolved. The patient's cardiac enzymes are negative, and his EKG is unchanged from the admitting EKG. We will continue with the current cardiac medications. 4. Oropharyngeal achalasia, status post esophageal dilation. Stable. 5. Iron deficiency anemia. Continue with iron supplementation. 6. Hypothyroidism. Continue on Synthroid. 7. Constipation. Continue with scheduled laxative therapy. 8. Benign prostatic hypertrophy. Continue on Flomax. 9. Gastrointestinal prophylaxis. Continue on Protonix. 10. Disposition. The patient was scheduled to be discharged to rehab today; however, after he had his respiratory event the discharge was canceled. We will watch the patient this weekend and see how he does. cc: Silvina Poon MD
[2018-07-28] MEDS: FLOMAX PO SCH (21:33)
[2018-07-28] MEDS: IMDUR PO SCH (21:33)
[2018-07-28] MEDS: PERCOCET-5 PO PRN (22:33)
--- NOTE | 2018-07-28 23:05 | PULMONOLOGY PROGRESS NOTE ---
DATE: 07/28/2018 INTERIM HISTORY: Patient was being prepared for transfer to a rehab facility. He had increased choking spell earlier this morning associated with eating and subsequently had progressive hypoxemia with increased oxygen requirements. He was initiated on BiPAP and has gradually recovered through the day. OBJECTIVE: BP 124/77, heart rate 73, respiratory rate 18, oxygen saturation 96% on non- rebreather.HEENT: Pupils are equal and reactive. Oropharynx is clear. Neck: Is supple. Chest: Reveals scattered crackles and rhonchi bilaterally. Cardiac: S1-S2. Abdomen: Obese and soft. Extremities: Without edema. LABORATORIES: EKG without new or ischemic changes. Chest x-ray has been ordered for tomorrow morning. IMPRESSION: A 73-year-old with cricopharyngeal achalasia/stricture status post dilation, component of pulmonary fibrosis, hypoxemic respiratory failure who most likely had another aspiration event earlier this morning. He has had significant increase in oxygen requirements but is starting to recover. PLAN: 1. Continue oxygen for acute hypoxemic respiratory failure. 2. Encourage patient to limit p.o. intake this evening given aspiration event earlier today. 3. Continue safe swallowing practices. 4. Continue current resuscitation status which is to allow patient to have a natural if he has a cardiopulmonary event. 5. Followup chest x-ray tomorrow. 6. If patient has ongoing aspiration, will need to discuss whether it is wishes to continue p.o. intake with the risk of aspiration or whether he would like to pursue a PEG tube placement. cc: Mario Wu MD
[2018-07-29] MEDS: MAXIPIME 2 GM in NS 100 ML IV SCH ×2 (02:25→14:37)
[2018-07-29] MEDS: MYCELEX TROCHE PO SCH ×4 (02:26→20:03)
[2018-07-29] MEDS: DUONEB (A & A) INH SCH ×7 (03:40→23:53)
[2018-07-29 05:45] LABS: ALLEN TEST YES; BE 1.7 mmoll (-3.0-3.0); BLOOD TYPE ARTERIAL; HCO3-(ACT) 26.2 mmoll (20.0-26.0); O2(CT) 15.9 mL/dL (15.0-23.0); O2HB 96.5 % (95.0-99.0); PCO2(98.6) 42 mmHg (35-45); PO2(98.6) 124 mmHg (60-100); SAMPLE BLOOD; THB 11.6 g/dL (11.5-17.4); pH(98.6) 7.41 (7.35-7.45)
[2018-07-29 05:46] LABS: MODALITY VENTIMASK
[2018-07-29 05:53] LABS: BASO# 0.04 X1000 (0.0-0.2); BASO% 0.5 % (0.0-0.8); EOS# 0.46 X1000 (0.0-0.7); EOS% 5.3 % (0.0-10.0); HEMATOCRIT 35.8 % (42.0-52.0); HEMOGLOBIN 11.5 g/dL (14.0-18.0); IMM GRAN# 0.06 X1000 (0.0-0.04); IMM GRAN% 0.7 % (0.0-0.5); LYMPH# 1.17 X1000 (1.2-3.4); LYMPH% 13.6 % (20.5-51.1); MCH 31.2 PG (27-31); MCHC 32.1 g/dL (33-37); MONO# 1.13 X1000 (0.11-0.59); MONO% 13.1 % (1.7-9.3); MPV 9.4 FL (7.4-10.4); NEUT# 5.77 X1000 (1.4-6.5); NEUT% 66.8 % (42.2-75.2); PLT 291 X1000 (130-400); RBC 3.69 XMIL (4.7-6.1); RDW 13.4 % (11.5-14.5); WBC 8.63 X1000 (4.8-10.8)
[2018-07-29 06:22] LABS: AGAP 11; ALB/GLOB RATIO 0.8; ALBUMIN 3.1 g/dL (3.5-5.0); ALKALINE PHOSPHATASE 62 U/L (32-122); BUN 11 mg/dL (8-22); CALCIUM 8.7 mg/dL (8.8-10.2); CHLORIDE 98 mmol/L (98-107); COSMO 272; CREATININE 0.7 mg/dL (0.7-1.2); ESTIMATED GFR > 60; GLUCOSE 138 mg/dL (70-104); GOT 27 U/L (10-34); GPT 39 U/L (10-44); MAGNESIUM 2.1 mg/dL (1.5-2.7); PHOSPHORUS 4.1 mg/dL (2.7-4.5); POTASSIUM 4.4 mmol/L (3.5-5.1); SODIUM 135 mmol/L (136-145); TCO2 26 mmol/L (25-35); TOTAL BILIRUBIN 0.53 mg/dL (0.20-1.00); TOTAL PROTEIN 7.1 g/dL (6.3-8.3)
[2018-07-29] MEDS: SYNTHROID PO SCH (06:22)
--- NOTE | 2018-07-29 07:30 | Diag Imaging Result Doc PS360 ---
EXAM: CHEST-1 VIEW HISTORY: pneumonia TECHNIQUE: Portable chest COMPARISON: 07/26/2018 FINDINGS: Poor inspiratory effort. There are bibasilar infiltrates similar to the prior study. There are sternal wires and surgical clips. No cardiomegaly. Questionable trace pleural fluid. IMPRESSION: No interval improvement. Electronically signed by Junaid Zavala 07/29/2018 7:28 AM
[2018-07-29] MEDS: MUCOMYST 20% INH SCH ×2 (07:54→18:59)
[2018-07-29] MEDS: LACTULOSE PO SCH ×2 (08:38→20:02)
[2018-07-29] MEDS: LOVENOX SUBQ SCH (08:38)
[2018-07-29] MEDS: CENTRUM SILVER PO SCH (08:39)
[2018-07-29] MEDS: VANCOMYCIN 1,800 MG in NS 250 ML IV SCH (08:39)
[2018-07-29] MEDS: LIPITOR PO SCH (08:39)
[2018-07-29] MEDS: PAXIL PO SCH (08:39)
[2018-07-29] MEDS: MIRALAX PO SCH ×2 (08:39→20:03)
[2018-07-29] MEDS: CULTURELLE PO SCH ×2 (08:39→20:03)
[2018-07-29] MEDS: PROTONIX IV SCH ×2 (08:39→20:03)
[2018-07-29] MEDS: PRINIVIL PO SCH (08:40)
[2018-07-29] MEDS: PERICOLACE PO SCH ×2 (08:40→20:03)
[2018-07-29] MEDS: ICAR-C PO SCH ×2 (08:40→20:03)
[2018-07-29] MEDS: TOPROL XL PO SCH (08:40)
[2018-07-29] MEDS: PLAVIX PO SCH (08:40)
[2018-07-29] MEDS: ASPIRIN PO SCH (08:40)
[2018-07-29] MEDS: PERCOCET-5 PO PRN (08:52)
--- NOTE | 2018-07-29 15:38 | PULMONOLOGY PROGRESS NOTE ---
DATE: 07/29/2018 SUBJECTIVE: Patient is awake, alert, and conversant. He reports he choked on some water earlier this morning, but did tolerate some oral intake. His shortness of breath has diminished. He is back on nasal cannula. OBJECTIVE: Vital Signs: Blood pressure 98/62, heart rate 73, respiratory rate 14, oxygen saturation 97%. He had been afebrile for the last 24 hours. HEENT: Pupils are equal and reactive. Oropharynx is clear. Neck: Supple. Chest: Reveals occasional rhonchi bilaterally with bibasilar crackles. Cardiac exam: S1, S2. Abdomen: Obese and soft. Extremities: Reveal trace edema. LABORATORIES/X-RAYS: Chest x-ray without acute change. White blood count 8.6, hemoglobin 11.5, platelet count 291,000. Chemistry: Sodium 135, potassium 4.4, chloride 98, bicarbonate 26. BUN 11, creatinine 0.7. Arterial blood gas: A pH of 7.41, pCO2 of 42, PO2 of 124. IMPRESSION: A 73 year old with cricopharyngeal achalasia status post dilation, component of pulmonary fibrosis, with recurrent acute aspiration and acute hypoxemic respiratory failure. The patient's oxygen requirements have continued to decline from yesterday morning's event. RECOMMENDATIONS: 1. Continue oxygen for acute hypoxemic respiratory failure. 2. Continue to practice safe swallowing practices. The patient will continue to eat small amounts as tolerated. 3. End of life resuscitation has been discussed. 4. Ongoing evaluation of aspiration if he does not tolerate p.o. intake, then patient will need to decide if he wants to pursue a PEG tube, although hopefully this can be avoided. cc: Mario Wu MD
--- NOTE | 2018-07-29 18:40 | PROGRESS NOTE ---
DATE: 07/29/2018 SUBJECTIVE: The patient had a coughing fit after drinking some water this morning. He reports that he has difficulty with sometimes even swallowing his own saliva at times. OBJECTIVE: Vital Signs: Temperature 98.4 degrees, blood pressure 117/69, heart rate 65, respirations 18, O2 saturation 99% on 4 L nasal cannula. General: This is a chronically ill- appearing elderly male lying in bed in no acute distress. Heart: S1, S2 normal. Regular rate and rhythm. Lungs: Equal air entry bilaterally. No crackles, no rales. Abdomen: Positive bowel sounds. Soft, nontender, nondistended. Extremities: No edema, no cyanosis. Neuro: The patient is alert and oriented x4. LABS: White blood cell count 8.6, hemoglobin 11, hematocrit 35, platelets 291,000, sodium 135, potassium 4.4, chloride 98, CO2 26, BUN 11, creatinine 0.7, glucose 138, magnesium 2.1, phosphorus 4.1. Chest x-ray, basilar infiltrates. ASSESSMENT AND PLAN: 1. Acute hypoxemic respiratory failure. Continue to treat the underlying aspiration pneumonia. Continue with aspiration precautions. 2. Oropharyngeal achalasia status post esophageal dilation. The patient is still having difficulty with swallowing. The patient may require PEG tube placement. Will await further recommendations from GI. 3. Iron deficiency anemia. Continue with iron supplementation. 4. Hypothyroidism. Continue on Synthroid. 5. Benign prostatic hypertrophy. Continue on Flomax. 6. Gastrointestinal prophylaxis. Continue with Protonix. cc: Silvina Poon MD
[2018-07-29] MEDS: IMDUR PO SCH (20:03)
[2018-07-29] MEDS: FLOMAX PO SCH (20:03)
[2018-07-30] MEDS: MAXIPIME 2 GM in NS 100 ML IV SCH ×2 (02:40→14:50)
[2018-07-30] MEDS: VANCOMYCIN 1,800 MG in NS 250 ML IV SCH ×2 (02:40→20:56)
[2018-07-30] MEDS: MYCELEX TROCHE PO SCH ×5 (02:40→20:34)
[2018-07-30] MEDS: DUONEB (A & A) INH SCH ×6 (03:50→23:10)
[2018-07-30] MEDS: PERCOCET-5 PO PRN ×2 (04:20→20:56)
[2018-07-30] MEDS: SYNTHROID PO SCH (06:12)
[2018-07-30 06:22] LABS: BASO# 0.03 X1000 (0.0-0.2); BASO% 0.3 % (0.0-0.8); EOS# 0.64 X1000 (0.0-0.7); EOS% 6.1 % (0.0-10.0); HEMATOCRIT 34.7 % (42.0-52.0); HEMOGLOBIN 11.2 g/dL (14.0-18.0); IMM GRAN# 0.05 X1000 (0.0-0.04); IMM GRAN% 0.5 % (0.0-0.5); LYMPH# 1.36 X1000 (1.2-3.4); LYMPH% 13.1 % (20.5-51.1); MCH 30.9 PG (27-31); MCHC 32.3 g/dL (33-37); MCV 95.9 FL (81-99); MONO# 1.09 X1000 (0.11-0.59); MONO% 10.5 % (1.7-9.3); MPV 9.2 FL (7.4-10.4); NEUT# 7.24 X1000 (1.4-6.5); NEUT% 69.5 % (42.2-75.2); PLT 288 X1000 (130-400); RBC 3.62 XMIL (4.7-6.1); RDW 13.4 % (11.5-14.5); WBC 10.41 X1000 (4.8-10.8)
[2018-07-30 06:40] LABS: AGAP 12; BUN 10 mg/dL (8-22); CHLORIDE 97 mmol/L (98-107); COSMO 270; CREATININE 0.8 mg/dL (0.7-1.2); ESTIMATED GFR > 60; GLUCOSE 145 mg/dL (70-104); POTASSIUM 4.6 mmol/L (3.5-5.1); SODIUM 134 mmol/L (136-145); TCO2 25 mmol/L (25-35)
[2018-07-30] MEDS: MUCOMYST 20% INH SCH ×2 (07:38→19:10)
[2018-07-30] MEDS: MIRALAX PO SCH ×3 (08:23→20:38)
[2018-07-30] MEDS: PROTONIX IV SCH ×2 (08:23→20:34)
[2018-07-30] MEDS: PAXIL PO SCH (08:25)
[2018-07-30] MEDS: LACTULOSE PO SCH ×3 (08:25→20:39)
[2018-07-30] MEDS: ICAR-C PO SCH ×2 (08:25→20:34)
[2018-07-30] MEDS: CULTURELLE PO SCH ×2 (08:25→20:34)
[2018-07-30] MEDS: PRINIVIL PO SCH (08:25)
[2018-07-30] MEDS: CENTRUM SILVER PO SCH (08:25)
[2018-07-30] MEDS: PLAVIX PO SCH (08:25)
[2018-07-30] MEDS: LIPITOR PO SCH (08:25)
[2018-07-30] MEDS: PERICOLACE PO SCH ×3 (08:25→20:39)
[2018-07-30] MEDS: ASPIRIN PO SCH (08:25)
[2018-07-30] MEDS: TOPROL XL PO SCH (08:26)
[2018-07-30] MEDS: LOVENOX SUBQ SCH (08:26)
[2018-07-30] MEDS: MORPHINE IV PRN ×3 (08:34→23:57)
[2018-07-30] MEDS: ZOFRAN IV PRN (11:13)
--- NOTE | 2018-07-30 14:09 | PROGRESS NOTE ---
DATE: 07/30/2018 SUBJECTIVE: The patient is resting comfortably in bed. No acute events noted overnight. He states that he still has coughing spells. He was able to eat his dinner last night. OBJECTIVE: Vital Signs: Temperature 98.4 degrees, blood pressure 130/91, heart rate 73, respirations 20, and O2 saturation 98% on 4 L nasal cannula. General: This is a chronically ill- appearing elderly male sitting up in a chair in no acute distress. Heart: S1, S2 normal. Regular rate and rhythm. Lungs: Equal air entry bilaterally. Diminished breath sounds at the bases. Abdomen: Positive bowel sounds. Soft, nontender, and nondistended. Extremities: No edema. No cyanosis. Neurologic: The patient is alert and oriented x4. LABORATORIES: White blood cell count 10, hemoglobin 11, hematocrit 34, and platelets 288,000. Sodium 134, potassium 4.6, chloride 97, CO2 25, BUN 10, creatinine 0.8 and glucose 145. ASSESSMENT AND PLAN: 1. Acute hypoxemic respiratory failure. Continue to treat the underlying pneumonia. 2. Oropharyngeal achalasia, status post esophageal dilation. Continue with aspiration precautions. We will change the patient to a mechanical soft diet. Continue with precautions. 3. Iron deficiency anemia. Continue with iron supplementation. 4. Benign prostatic hypertrophy. Continue on Flomax. 5. Hypothyroidism. Continue on Synthroid. 6. Aspiration pneumonia. Continue with antibiotic therapy. 7. Gastrointestinal prophylaxis. Continue on Protonix. 8. Continue with physical therapy. 9. Disposition. Once the patient is medically stable, he will be discharged to inpatient rehab. cc: Silvina Poon MD
--- NOTE | 2018-07-30 19:48 | PULMONOLOGY PROGRESS NOTE ---
DATE: 07/30/2018 SUBJECTIVE: The patient has had no more aspiration events since yesterday. He is having some periodic coughing spells. He is eating slowly. OBJECTIVE: Vital Signs: BP 116/64, heart rate 77, respiratory rate 20, nonlabored, oxygen saturation 98% on 4 L per nasal cannula. HEENT: Pupils are equal and reactive. Oropharynx is clear. Neck: Is supple. Chest: Reveals bibasilar crackles. Cardiac: S1-S2. Abdomen: Obese and soft. Extremities: Reveal trace edema. LABS: Chemistries and CBC reviewed. IMPRESSION: A 73-year-old with cricopharyngeal achalasia, pulmonary fibrosis, recurrent aspiration, acute hypoxemic respiratory failure. He is having some clinical improvement with decrease in oxygen requirements. We did briefly discuss the possibility of recurrent aspiration but he does not wish to pursue a percutaneous endoscopic gastrostomy tube at this time. RECOMMENDATION: 1. Continue oxygen for hypoxemic respiratory failure. 2. Continue safe swallowing practices. 3. Ongoing evaluation for possible p.o. intake versus PEG tube. 4. End-of-life discussions have been discussed. The patient will be allowed to have a natural if he has a life-ending cardiopulmonary event. cc: Mario Wu MD
[2018-07-30] MEDS: IMDUR PO SCH (20:34)
[2018-07-30] MEDS: FLOMAX PO SCH (20:35)
[2018-07-31] MEDS: MAXIPIME 2 GM in NS 100 ML IV SCH ×2 (02:32→15:24)
[2018-07-31] MEDS: MYCELEX TROCHE PO SCH ×4 (02:32→22:25)
[2018-07-31] MEDS: DUONEB (A & A) INH SCH ×6 (03:20→23:35)
[2018-07-31] MEDS: SYNTHROID PO SCH (06:44)
[2018-07-31 06:56] LABS: HEMATOCRIT 34.6 % (42.0-52.0); HEMOGLOBIN 11.2 g/dL (14.0-18.0); MCH 31.5 PG (27-31); MCHC 32.4 g/dL (33-37); MCV 97.2 FL (81-99); MPV 9.2 FL (7.4-10.4); RBC 3.56 XMIL (4.7-6.1); RDW 13.7 % (11.5-14.5); WBC 9.18 X1000 (4.8-10.8)
--- NOTE | 2018-07-31 07:26 | EKG Report ---
Test Performed on : 07/29/2018 06:17:16 AM Test Reason : cp Blood Pressure : / mmHG Vent. Rate : 077 BPM Atrial Rate : 077 BPM P-R Int : 186 ms QRS Dur : 108 ms QT Int : 388 ms P-R-T Axes : 072 -65 060 degrees QTc Int : 439 ms Normal sinus rhythm. with sinus arrhythmia. Left anterior fascicular block Abnormal ECG When compared with ECG of 28-JUL-2018 08:36, (Unconfirmed) premature ventricular complexes. are no longer present Confirmed by Kaila MCCLELLAN, Kunal Vela ([id number]) on 07/31/2018 8:21:21 AM
[2018-07-31 07:38] LABS: AGAP 11; BUN 11 mg/dL (8-22); CALCIUM 8.3 mg/dL (8.8-10.2); CHLORIDE 98 mmol/L (98-107); COSMO 271; CREATININE 0.8 mg/dL (0.7-1.2); ESTIMATED GFR > 60; GLUCOSE 120 mg/dL (70-104); POTASSIUM 4.5 mmol/L (3.5-5.1); SODIUM 135 mmol/L (136-145); TCO2 26 mmol/L (25-35)
--- NOTE | 2018-07-31 08:03 | Diag Imaging Result Doc PS360 ---
EXAM: CHEST-2 VIEWS HISTORY: abnormal exam TECHNIQUE: Chest two views COMPARISON: 07/29/2018 FINDINGS: Poor inspiratory effort. The sternal wires and surgical clips. No cardiomegaly. There are basilar infiltrates with atelectasis similar to the prior study. Questionable trace pleural fluid. IMPRESSION: Stable chest. Electronically signed by Junaid Zavala 07/31/2018 8:01 AM
[2018-07-31] MEDS: LACTULOSE PO SCH ×2 (09:34→22:24)
[2018-07-31] MEDS: ICAR-C PO SCH ×2 (09:34→22:24)
[2018-07-31] MEDS: PLAVIX PO SCH (09:35)
[2018-07-31] MEDS: MIRALAX PO SCH ×2 (09:35→22:23)
[2018-07-31] MEDS: LOVENOX SUBQ SCH (09:35)
[2018-07-31] MEDS: LIPITOR PO SCH (09:35)
[2018-07-31] MEDS: SODIUM CHLORIDE 0.9% INJ SCH ×2 (09:35→22:24)
[2018-07-31] MEDS: PROTONIX IV SCH ×2 (09:35→22:24)
[2018-07-31] MEDS: PAXIL PO SCH (09:35)
[2018-07-31] MEDS: ASPIRIN PO SCH (09:35)
[2018-07-31] MEDS: CENTRUM SILVER PO SCH (09:35)
[2018-07-31] MEDS: PERICOLACE PO SCH ×2 (09:35→22:24)
[2018-07-31] MEDS: CULTURELLE PO SCH ×2 (09:35→22:25)
[2018-07-31] MEDS ORDERED: TUSSIONEX LIQUID PO ONE (10:13)
[2018-07-31] MEDS: NITROGLYCERIN SL PRN ×2 (11:00→11:10)
[2018-07-31] MEDS: MUCOMYST 20% INH SCH ×2 (11:15→19:30)
[2018-07-31] MEDS: PRINIVIL PO SCH (12:40)
[2018-07-31] MEDS: TOPROL XL PO SCH (12:41)
--- NOTE | 2018-07-31 13:34 | PROGRESS NOTE ---
DATE: 07/31/2018 SUBJECTIVE: The patient is sitting up in bed. He states that he is still having coughing spells. He was able to eat a little bit of his breakfast today. OBJECTIVE: Vital Signs: Temperature 98.4 degrees, blood pressure 129/62, heart rate 68, respirations 24, and O2 saturation 95% on 4 L nasal cannula. General: This is a chronically ill- appearing elderly man sitting in bed in no acute distress. Heart: S1, S2 normal. Regular rate and rhythm. Lungs: Equal air entry bilaterally. No crackles. No rales. Abdomen: Positive bowel sounds. Soft, nontender, and nondistended. Extremities: No edema. No cyanosis. No calf tenderness. Neurologic: The patient is alert and oriented x3. No focal neurologic deficits noted. LABORATORY: White blood cell count 9.1, hemoglobin 11, hematocrit 34, and platelets 265,000. Sodium 135, potassium 4.5, chloride 98, CO2 26, BUN 11, creatinine 0.8 and glucose 120. Chest x-ray shows basilar infiltrates with atelectasis. ASSESSMENT AND PLAN: 1. Acute hypoxemic respiratory failure. Aware. 2. Oropharyngeal achalasia, status post esophageal dilation. Continue with aspiration precautions. 3. Benign prostatic hypertrophy. Continue on Flomax. 4. Iron deficiency anemia. Continue on iron supplementation. 5. Aspiration pneumonia. Continue with the current antibiotic regimen. 6. Gastrointestinal prophylaxis. Continue on Protonix. 7. Continue with physical therapy. 8. Disposition. The patient has a bed at [facility] in [place] once medically stable for discharge. cc: Silvina Poon MD MTDD
[2018-07-31] MEDS: PERCOCET-5 PO PRN (16:43)
[2018-07-31] MEDS ORDERED: CALMOSEPTINE OINTMENT TOP PRN (18:40)
[2018-07-31] MEDS: FLOMAX PO SCH (22:24)
[2018-07-31] MEDS: IMDUR PO SCH (22:24)
[2018-08-01] MEDS: PERCOCET-5 PO PRN ×2 (00:15→17:39)
--- NOTE | 2018-08-01 00:33 | GASTROENTEROLOGY PROGRESS NOTE ---
DATE: 07/31/2018 SUBJECTIVE: No acute overnight events. Patient continues to have SOB. He reports eating very little. No abdominal pain. +BM OBJECTIVE: Vital signs: Temperature 98.4, pulse rate 63 , respiratory rate 22 , blood pressure 116/66. The patient's O2 saturation is 100% on 4LNC. General: The patient is awake, alert, in NAD. HEENT: Sclerae anicteric. Neck: No lymphadenopathy. Cardiac: RRR, no mrg Lungs: bibasilar crackles. Abdomen: Obese, NT/ND, NABS. Lower extremities: No clubbing, cyanosis, or edema. Neurologic: Nonfocal. LABS: BMP WNL WBC 9.2 hgb 11.2 IMAGING: CXR with bibasilar infiltrates with atelectasis. stable check ASSESSMENT AND PLAN: Mr. Mandujano is a 77-year-old gentleman admitted with hypoxic respiratory distress in setting of aspiration pneumonia who presented to the GI Service with dysphagia status post EGD with dilation. He continues to have intermittent dysphagia to solids primarily from suspected oropharyngeal dysphagia. #Dysphagia - recommend patient be seen by speech to offer diet recommendations - dysphagia precautions - patient may ultimately need PEG placement although he has refused during this hospitalization and PEG would not prevent aspiration #Aspiration PNA: on abx #Constipation on bowel regimen #Hypoxic respiratory distress: followed by pulmonary #Anemia: stable: no overt bleeding We will follow with you. Please call with any questions or concerns. [facility]
[2018-08-01] MEDS: MYCELEX TROCHE PO SCH ×4 (02:16→20:41)
[2018-08-01] MEDS: MAXIPIME 2 GM in NS 100 ML IV SCH ×2 (02:16→15:15)
--- NOTE | 2018-08-01 02:34 | PULMONOLOGY PROGRESS NOTE ---
DATE: 07/31/2018 SUBJECTIVE: The patient reports he has had a better day. He has had no significant aspiration events. OBJECTIVE: Vital Signs: The patient has been afebrile for the last 24 hours. Blood pressure 116/66, heart rate 63, respiratory rate 22, oxygen saturation 98% on nasal cannula. HEENT: Pupils are equal reactive. Oropharynx is clear. Neck: Supple. Chest: Reveals bibasilar crackles without wheezing or rhonchi. Cardiac: S1 and S2. Abdomen: Obese and soft. Extremities: Without edema. LABORATORY DATA: White blood count 9.18, hemoglobin 11.2, platelet count 265,000. Sodium 135, potassium 4.5, chloride 98, bicarbonate 26, BUN 11, creatinine 0.8. IMPRESSION: The patient is a 73-year-old with pulmonary fibrosis, cricopharyngeal achalasia with a recurrent aspiration, acute hypoxemic respiratory failure. He is having slow marginal improvement. He is not interested in percutaneous endoscopic gastrostomy placement. RECOMMENDATION: 1. Continue oxygen for hypoxemic respiratory failure. 2. Continue safe swallowing practices. 3. Consider rehabilitation if the patient continues to do well. cc: Mario Wu MD
[2018-08-01] MEDS: DUONEB (A & A) INH SCH ×6 (04:00→22:57)
[2018-08-01] MEDS: SYNTHROID PO SCH ×2 (05:53→19:44)
[2018-08-01 06:24] LABS: HEMATOCRIT 35.8 % (42.0-52.0); HEMOGLOBIN 11.6 g/dL (14.0-18.0); MCH 31.3 PG (27-31); MCHC 32.4 g/dL (33-37); MCV 96.5 FL (81-99); MPV 9.2 FL (7.4-10.4); RBC 3.71 XMIL (4.7-6.1); RDW 13.7 % (11.5-14.5); WBC 11.3 X1000 (4.8-10.8)
[2018-08-01 06:37] LABS: AGAP 9; BUN 13 mg/dL (8-22); CALCIUM 9.2 mg/dL (8.8-10.2); CHLORIDE 98 mmol/L (98-107); COSMO 273; CREATININE 0.8 mg/dL (0.7-1.2); ESTIMATED GFR > 60; GLUCOSE 142 mg/dL (70-104); POTASSIUM 5.4 mmol/L (3.5-5.1); SODIUM 135 mmol/L (136-145); TCO2 28 mmol/L (25-35)
[2018-08-01] MEDS: MUCOMYST 20% INH SCH ×2 (07:41→19:23)
[2018-08-01] MEDS: SODIUM CHLORIDE 0.9% INJ SCH ×2 (09:59→20:44)
[2018-08-01] MEDS: CULTURELLE PO SCH ×2 (09:59→20:41)
[2018-08-01] MEDS: PLAVIX PO SCH (09:59)
[2018-08-01] MEDS: PROTONIX IV SCH ×2 (09:59→20:44)
[2018-08-01] MEDS: PERICOLACE PO SCH ×2 (09:59→20:43)
[2018-08-01] MEDS: LOVENOX SUBQ SCH (09:59)
[2018-08-01] MEDS: LIPITOR PO SCH (09:59)
[2018-08-01] MEDS: CENTRUM SILVER PO SCH (09:59)
[2018-08-01] MEDS: MIRALAX PO SCH ×2 (09:59→20:43)
[2018-08-01] MEDS: PAXIL PO SCH (10:00)
[2018-08-01] MEDS: VANCOMYCIN 1,800 MG in NS 250 ML IV SCH (10:00)
[2018-08-01] MEDS: ICAR-C PO SCH ×2 (10:00→20:41)
[2018-08-01] MEDS: ASPIRIN PO SCH (10:00)
[2018-08-01] MEDS: TOPROL XL PO SCH (10:00)
[2018-08-01] MEDS: PRINIVIL PO SCH (10:00)
[2018-08-01] MEDS ORDERED: NS 500 ML ONE (10:02)
[2018-08-01] MEDS: LACTULOSE PO SCH ×2 (10:17→20:44)
--- NOTE | 2018-08-01 11:45 | GASTROENTEROLOGY PROGRESS NOTE ---
DATE: 08/01/2018 SUBJECTIVE: No acute overnight events. Afebrile. The patient denies nausea, vomiting, chest pain. Shortness of breath is stable. Continues to have cough that is worse with eating. No abdominal pain. The patient is having bowel movements. OBJECTIVE: Vital Signs: Temperature 97.6 degrees, heart rate 88, respiratory rate 13, blood pressure 131/72, and O2 saturation 92% on 5 liters nasal cannula. Generally: The patient is awake, alert, oriented, no acute distress, sitting upright in chair. HEENT: Sclerae anicteric. Moist mucous membranes. Neck: No JVD. No lymphadenopathy. Cardiac: Regular rate and rhythm. No murmurs. Lungs: Coarse breath sounds throughout. Bibasilar crackles. No wheezing. Abdomen: Obese, soft, nontender, nondistended. Normal bowel sounds. No rebound or guarding. Extremities: No clubbing, cyanosis, or edema. Neurologic: Nonfocal. LABORATORY DATA: White count 11.3, hemoglobin 11.6, platelets of 281,000. Sodium 135, potassium 5.4, chloride of 98, bicarbonate of 28, BUN 13, creatinine 0.8. ASSESSMENT AND PLAN: Mr. Mandujano is a 73-year-old gentleman admitted with hypoxic respiratory distress in the setting of aspiration pneumonia who presented to the Gastrointestinal Service with dysphagia, status post esophagogastroduodenoscopy with dilation. He continues to have intermittent dysphagia with solids, primarily from suspected oropharyngeal dysphagia. There were no obvious obstructing lesions on his recent esophagogastroduodenoscopy. #Dysphagia: - recommend that the patient be seen by speech again to offer diet recommendations ie mechanical soft diet - continued dysphagia precautions - patient currently is not interested in percutaneous endoscopic gastrostomy tube at this time. #Aspiration pneumonia, currently on antibiotics with cefepime and vancomycin. #Gastroesophageal reflux disease. Continue proton pump inhibitor. #Constipation. Continue MiraLAX and lactulose. #Anemia. Hemoglobin stable. No signs of overt gastrointestinal bleeding. The patient is on a proton pump inhibitor. #Hypoxic respiratory distress, likely secondary to pneumonia and underlying pulmonary fibrosis. Continue nebulizers and antibiotics as per Pulmonary's and Infectious Disease 's recommendations. We will continue to follow. Please call with any questions or concerns. [facility]
--- NOTE | 2018-08-01 15:14 | PROGRESS NOTE ---
DATE: 08/01/2018 SUBJECTIVE: The patient resting in bed. Not in any obvious distress. OBJECTIVE: His vital signs as follows: Temperature 96.5 with a pulse of 77, blood pressure 103/58, oxygen saturation 99%. The patient is a chronically ill- looking elderly male not in any obvious distress. Cardiovascular: S1, S2. Respiratory system has evidence of good air entry bilaterally. Abdomen soft, nontender. No masses felt. Extremities: No evidence of significant edema. Central Nervous System: No obvious focal deficit noted. LABORATORY DATA: WBC is 11.3, hematocrit is 35.8 with a platelet count of 381, 000. Sodium is 135, potassium 5.4, chloride is 98, bicarb 28. BUN is 13, creatinine 0.8. X-ray chest done on 07/31/2018 shows basilar infiltrates as well as atelectasis similar to prior exam. There is questionable trace pleural fluid. ASSESSMENT AND PLAN: 1. Probable aspiration pneumonia. Continue current antibiotics. Patient is currently on cefepime as well as vancomycin. 2. Dysphagia. Gastroenterology following. Dysphagia precautions recommended and also evaluation by speech. 3. Hypoxic respiratory failure. Maintain patient on oxygen. Pulmonary following. 4. Benign prostatic hypertrophy. Continue Flomax. 5. Iron deficiency anemia. Continue iron supplementation. 6. Gastrointestinal prophylaxis. The patient on proton pump inhibitor. 7. Deconditioning. PT recommended. DISPOSITION: The patient does have a bed at [facility] in [place]; however, he is contemplating if he would like to be discharged home with hospice care. cc: Ramos Huddleston MD MTDD
[2018-08-01] MEDS: FLOMAX PO SCH (20:41)
[2018-08-01] MEDS: IMDUR PO SCH (20:42)
[2018-08-02] MEDS: DUONEB (A & A) INH SCH ×6 (03:20→23:10)
[2018-08-02] MEDS: MAXIPIME 2 GM in NS 100 ML IV SCH ×2 (03:58→15:11)
[2018-08-02] MEDS: PERCOCET-5 PO PRN ×3 (04:04→22:38)
[2018-08-02] MEDS: MYCELEX TROCHE PO SCH ×4 (04:04→22:35)
[2018-08-02] MEDS: SYNTHROID PO SCH ×2 (05:24→06:42)
[2018-08-02 05:49] LABS: HEMATOCRIT 35.2 % (42.0-52.0); HEMOGLOBIN 11.5 g/dL (14.0-18.0); MCH 31.3 PG (27-31); MCHC 32.7 g/dL (33-37); MCV 95.7 FL (81-99); MPV 9.1 FL (7.4-10.4); RBC 3.68 XMIL (4.7-6.1); RDW 13.5 % (11.5-14.5); WBC 7.92 X1000 (4.8-10.8)
[2018-08-02] MEDS: MUCOMYST 20% INH SCH ×2 (07:40→19:37)
[2018-08-02] MEDS: PROTONIX IV SCH ×2 (09:27→22:37)
[2018-08-02] MEDS: SODIUM CHLORIDE 0.9% INJ SCH ×2 (09:27→22:37)
[2018-08-02] MEDS: MIRALAX PO SCH ×2 (09:28→22:37)
[2018-08-02] MEDS: CULTURELLE PO SCH ×2 (09:28→22:36)
[2018-08-02] MEDS: ASPIRIN PO SCH (09:28)
[2018-08-02] MEDS: LIPITOR PO SCH (09:28)
[2018-08-02] MEDS: LACTULOSE PO SCH ×2 (09:28→22:38)
[2018-08-02] MEDS: PLAVIX PO SCH (09:28)
[2018-08-02] MEDS: PRINIVIL PO SCH (09:28)
[2018-08-02] MEDS: PAXIL PO SCH (09:28)
[2018-08-02] MEDS: LOVENOX SUBQ SCH (09:29)
[2018-08-02] MEDS: PERICOLACE PO SCH ×2 (09:29→22:35)
[2018-08-02] MEDS: TOPROL XL PO SCH (09:29)
[2018-08-02] MEDS: CENTRUM SILVER PO SCH (09:29)
[2018-08-02] MEDS: ICAR-C PO SCH ×2 (09:40→22:36)
--- NOTE | 2018-08-02 12:46 | GASTROENTEROLOGY PROGRESS NOTE ---
DATE: 08/02/2018 SUBJECTIVE: The patient is seen by Speech Therapy yesterday. He was started on a mechanical soft diet. Overnight, no acute events. The patient is afebrile. He reports feeling great this morning, admits to eating the most that he has since admission. He attributes his improvement to being put on a mechanical soft diet. He denies any nausea, vomiting, abdominal pain. His respiratory status is stable. Having bowel movements. OBJECTIVE: Vital signs: Temperature 97.5, heart rate 84, respiratory rate 18, blood pressure 129/61, O2 saturation 95% on 3 L. General: The patient is awake, alert, pleasant, in no acute distress. HEENT: Sclerae anicteric. Moist mucous membranes. Neck: No JVD, no lymphadenopathy. Cardiac: Regular rate and rhythm, no murmurs. Lungs: Coarse, decreased breath sounds bilaterally at the bases. Abdomen: Obese, soft, nontender, nondistended, normoactive bowel sounds. Extremities: No clubbing, cyanosis, or edema. Neurologic: Nonfocal. LABS: White count 7.9, hemoglobin 11.5, platelets 267,000. ASSESSMENT AND PLAN: Mr. Mandujano is a 73-year-old gentleman admitted with hypoxic respiratory distress in the setting of aspiration pneumonia. GI was consulted initially for dysphagia. He is status post esophagogastroduodenoscopy with dilation. His dysphagia has improved with alteration of diet, being put on a mechanical soft diet. He continues to have respiratory issues and is on antibiotics for his pneumonia. The patient was seen by palliative care team recently, and decision was made for patient to go home with hospice, given his multiple medical problems. 1. For his dysphagia, continue to maintain a mechanical soft diet with dysphagia precautions. Patient previously has refused PEG tube. 2. Aspiration pneumonia, currently on antibiotics as per primary team. 3. Constipation, stable on bowel regimen. 4. Hypoxic respiratory distress, followed by Pulmonary, on supplemental O2. 5. Anemia, stable. No overt bleeding. Will follow with you. Please call with any questions or concerns. [facility]
--- NOTE | 2018-08-02 14:01 | PROGRESS NOTE ---
DATE: 08/02/2018 SUBJECTIVE: The patient is awake. She is seated on the chair. Not in any obvious distress. OBJECTIVE: Vital signs: Temperature 97.8 degrees, pulse 61, respiratory 16, and blood pressure 180/60, and oxygen saturation is 95%. HEENT: She is atraumatic and normocephalic. Cardiovascular: S1, S2. Respiratory: She has evidence of good air entry bilaterally. Abdomen: Soft, nontender. No masses felt. Extremities: No evidence of edema. Central Nervous System: No obvious focal deficits noted. LABORATORY: WBC is 7.93, hematocrit 35.2 with a platelet count of 267,000. ASSESSMENT AND PLAN: 1. Probable aspiration pneumonia. Continue current antibiotic regimen. 2. Dysphagia. Gastroenterology following. Mechanical soft diet as well as dysphagia precautions recommended, and note to patient refusal to have G-tube. 3. Hypoxic respiratory failure. Maintain patient on oxygen improved. Pulmonary following. 4. Benign prostatic hypertrophy. Continue Flomax. 5. Iron deficiency anemia. Continue iron supplementation. 6. Gastrointestinal prophylaxis. Patient on proton pump inhibitor. 7. Deconditioning. PT recommended. 8. Disposition. Patient will be going home with hospice care. cc: Ramos Huddleston MD
[2018-08-02] MEDS: VANCOMYCIN 1,800 MG in NS 250 ML IV SCH (22:34)
[2018-08-02] MEDS: FLOMAX PO SCH (22:36)
[2018-08-02] MEDS: IMDUR PO SCH (22:36)
--- NOTE | 2018-08-03 02:43 | PULMONOLOGY PROGRESS NOTE ---
DATE: 08/02/2018 SUBJECTIVE: The patient reports he has had "the best in a long time." He sat up in the chair. He tolerated p.o. intake without difficulty. OBJECTIVE: The patient has been afebrile for the last 24 hours. Blood pressure 125/72, heart rate 72, oxygen saturation 96 on 3 L per nasal cannula. HEENT: Pupils are equal and reactive. Oropharynx is clear. Neck: Supple. Chest: Reveals crackles in the lung bases. Cardiac: S1-S2. Abdomen: Obese and soft. Extremities: Without edema. LABORATORIES: White blood count 7.92, hemoglobin 11.5, platelet count 267,000. No electrolytes today. IMPRESSION: A 73-year-old with pulmonary fibrosis, aspiration pneumonia, acute hypoxemic respiratory failure. The patient is having slow marginal improvement. RECOMMENDATION: 1. Continue to wean oxygen as tolerated. 2. Continues safe swallowing practices. 3. Consider changing patient to an oral antibiotic, such as Augmentin. 4. Hopefully, the patient can be discharged in the near future. cc: Mario Wu MD
[2018-08-03] MEDS: DUONEB (A & A) INH SCH ×7 (03:05→23:34)
[2018-08-03] MEDS: MYCELEX TROCHE PO SCH ×4 (03:16→21:55)
[2018-08-03] MEDS: MAXIPIME 2 GM in NS 100 ML IV SCH (03:16)
[2018-08-03] MEDS: SYNTHROID PO SCH (06:31)
[2018-08-03] MEDS: PERCOCET-5 PO PRN ×3 (06:32→21:53)
[2018-08-03] MEDS: MUCOMYST 20% INH SCH ×2 (07:37→19:57)
[2018-08-03] MEDS: LOVENOX SUBQ SCH (08:48)
[2018-08-03] MEDS: ICAR-C PO SCH ×2 (08:48→21:55)
[2018-08-03] MEDS: TOPROL XL PO SCH ×2 (08:48→08:52)
[2018-08-03] MEDS: MIRALAX PO SCH ×2 (08:48→21:54)
[2018-08-03] MEDS: CENTRUM SILVER PO SCH (08:48)
[2018-08-03] MEDS: ASPIRIN PO SCH (08:48)
[2018-08-03] MEDS: LIPITOR PO SCH (08:48)
[2018-08-03] MEDS: PERICOLACE PO SCH ×2 (08:49→21:56)
[2018-08-03] MEDS: PAXIL PO SCH (08:49)
[2018-08-03] MEDS: LACTULOSE PO SCH ×2 (08:49→21:55)
[2018-08-03] MEDS: CULTURELLE PO SCH (08:50)
[2018-08-03] MEDS: PROTONIX IV SCH ×3 (08:51→21:55)
[2018-08-03] MEDS: SODIUM CHLORIDE 0.9% INJ SCH ×2 (08:51→21:55)
[2018-08-03] MEDS: PRINIVIL PO SCH (08:53)
[2018-08-03] MEDS: PLAVIX PO SCH (09:08)
--- NOTE | 2018-08-03 13:03 | GASTROENTEROLOGY PROGRESS NOTE ---
DATE: 08/03/2018 SUBJECTIVE: He is resting in a chair. He is feeling better. He got strangles this morning after eating chopped up turkey and scrambled eggs. So, we will switch him to a pureed diet. The patient continues to struggle with shortness of breath. This is being followed by Dr. Wu. OBJECTIVE: Vital signs: Temperature 98.1 degrees, pulse 65, respiratory rate 16, blood pressure 196/49 satting 92% on 3 liters nasal cannula. General Appearance: Moderately-built, well- nourished male sitting in chair in no acute distress. HEENT: Mild pallor. No icterus. Nasal cannula in place. Neck: Supple. Abdomen: Protuberant, soft. No guarding, no rebound. Extremities: No cyanosis, clubbing. Neurologic: Neuro-ferrer, alert, awake, oriented x3. LABS: Hemoglobin and hematocrit is 11.5 and 35.2, white count of 7.9, platelet count of 267. IMPRESSION AND PLAN: 1. Dysphagia. He continues to have trouble with solid foods, like meats, even if they are chopped up. So, in this regard, we will switch him to a gastrointestinal soft diet. We will puree his meats and we will keep him on Ensure 3 times daily. He will chew the food well. The patient has previously refused percutaneous endoscopic gastrostomy tube placement. 2. Aspiration pneumonia. He is on antibiotics. 3. Pulmonary fibrosis. He is on oxygen support. This is being weaned down per Dr. Wu. 4. Constipation. He is on bowel regimen. 5. Anemia. Continue to watch for now. He is currently stable. 6. Deep vein thrombosis prophylaxis with Lovenox. 7. He has history of coronary disease. He is on aspirin and Plavix. We will continue to watch for any signs of active bleeding. 8. Above plan discussed with the patient and the nursing staff, and all questions were answered. Please call us with any further questions. cc: MD Elvin Pfeiffer MD
[2018-08-03] MEDS: AUGMENTIN LIQUID PO SCH ×2 (13:37→21:56)
[2018-08-03] MEDS ORDERED: LASIX IV ONE (15:30)
[2018-08-03] MEDS: MYCOSTATIN POWDER TOP SCH ×2 (15:52→22:00)
--- NOTE | 2018-08-03 16:18 | PROGRESS NOTE ---
DATE: 08/03/2018 INTERVAL HISTORY: The patient with some slight increase in dyspnea today although the oxygenation is stable to slightly improved. Denies increased cough, chest pain, or diaphoresis. No other acute events overnight. No other new complaints. REVIEW OF SYSTEMS: A 12 point review of systems negative except as per Interval History. PHYSICAL EXAMINATION: Vitals: T-max 98.4, pulse 76, respirations 18, blood pressure 109/56, O2 saturation 98% on 4 L by nasal cannula. General: No acute distress. HEENT: Normocephalic, atraumatic. Moist mucous membranes. Neck: No cervical adenopathy. Cardiovascular: Regular rate and rhythm. No murmurs noted. Pulmonary: Bibasilar crackles noted. Lungs otherwise clear to auscultation. Abdomen: Soft. Nontender. Nondistended. Bowel sounds positive. Extremities: Peripheral pulses intact. No clubbing, cyanosis, or edema. Neurologic: Cranial nerves grossly intact. No focal deficits identified. Psychiatric: Normal mood and affect. Awake, alert, and oriented x3. Skin: No new rashes or lesions identified. ASSESSMENT AND PLAN: 1. Aspiration pneumonia. Changing antibiotics to Augmentin as per Pulmonary recommendation. Still requiring some oxygen. Given bibasilar crackles, will also give a dose of Lasix to see if we can give him some symptomatic relief. Patient planning on discharging home with hospice once this is arranged, as long as symptoms are improved. 2. Dysphagia. Gastroenterology on board and status post esophagogastroduodenoscopy showing mild stricture and michael esophagitis. The patient is doing reasonably well on mechanical soft diet. The patient has refused PEG tube placement. 3. Acute versus acute on chronic hypoxic respiratory failure. As above. Oxygenation somewhat improved over the last several days. Pulmonology following. Change antibiotic as above. Continue to monitor. 4. Benign prostatic hypertrophy. Continue Flomax. 5. Iron deficiency anemia. Blood count is stable on last check. Continue iron supplementation. 6. Gastrointestinal prophylaxis with proton pump inhibitor. 7. Deep vein thrombosis prophylaxis with Lovenox. 8. Candidal and groin fungal infection. The patient is on clotrimazole for candidal esophagitis. Will also add some topical Nystatin for his groin. 9. Disposition: Patient has elected to go home with hospice once this approved by [place] and set up. We are attempting to improve symptomatically as above.
[2018-08-03] MEDS: IMDUR PO SCH (21:56)
[2018-08-03] MEDS: FLOMAX PO SCH (21:56)
--- NOTE | 2018-08-04 00:29 | PULMONOLOGY PROGRESS NOTE ---
DATE: 08/03/2018 SUBJECTIVE: The patient reports he had more difficulty with choking and breathing earlier today, but he has had a good afternoon. OBJECTIVE: Vital Signs: The patient has been afebrile for the last 24 hours. Blood pressure 111/51, heart rate 85, respiratory rate 20, oxygen saturation 96% on 3 L per nasal cannula. HEENT: Pupils are equal and reactive. Oropharynx is clear. Neck: Supple. Chest: Reveals bibasilar crackles. Cardiac: S1-S2. Abdomen: Obese and soft. Extremities: Reveal trace edema. IMPRESSION: A 73-year-old with pulmonary fibrosis, aspiration pneumonia, esophageal dysfunction, with an acute hypoxemic respiratory failure. The patient is having good days and bad days, but continues to have intermittent episodes of choking and probable aspiration. He has been evaluated by palliative care, and would like to be discharged with hospice. The paperwork has been referred to the [place] for possible approval to home hospice. He is at peace with this decision. RECOMMENDATION: 1. Continue oxygen for hypoxemic respiratory failure. 2. Continue safe swallowing practices. 3. Agree with current resuscitation status and palliative care plan. cc: Mario Wu MD
[2018-08-04] MEDS: MYCELEX TROCHE PO SCH ×3 (02:52→09:55)
[2018-08-04] MEDS ORDERED: MYCELEX TROCHE PO SCH ×2 (03:15→06:00)
[2018-08-04] MEDS: DUONEB (A & A) INH SCH ×4 (03:24→15:30)
[2018-08-04] MEDS: SYNTHROID PO SCH ×2 (05:54→08:16)
[2018-08-04 06:56] LABS: BASO# 0.05 X1000 (0.0-0.2); BASO% 0.6 % (0.0-0.8); EOS# 0.63 X1000 (0.0-0.7); EOS% 7.4 % (0.0-10.0); HEMATOCRIT 36.4 % (42.0-52.0); HEMOGLOBIN 12.2 g/dL (14.0-18.0); IMM GRAN# 0.06 X1000 (0.0-0.04); IMM GRAN% 0.7 % (0.0-0.5); LYMPH# 1.26 X1000 (1.2-3.4); LYMPH% 14.7 % (20.5-51.1); MCH 31.4 PG (27-31); MCHC 33.5 g/dL (33-37); MCV 93.8 FL (81-99); MONO# 1.25 X1000 (0.11-0.59); MONO% 14.6 % (1.7-9.3); MPV 9.3 FL (7.4-10.4); PLT 275 X1000 (130-400); RBC 3.88 XMIL (4.7-6.1); RDW 13.4 % (11.5-14.5); WBC 8.55 X1000 (4.8-10.8)
[2018-08-04 07:16] LABS: AGAP 15; BUN 16 mg/dL (8-22); CALCIUM 8.7 mg/dL (8.8-10.2); CHLORIDE 93 mmol/L (98-107); COSMO 272; CREATININE 0.9 mg/dL (0.7-1.2); ESTIMATED GFR > 60; GLUCOSE 152 mg/dL (70-104); POTASSIUM 4.3 mmol/L (3.5-5.1); SODIUM 134 mmol/L (136-145); TCO2 26 mmol/L (25-35)
[2018-08-04] MEDS: MUCOMYST 20% INH SCH (07:41)
[2018-08-04] MEDS: PERCOCET-5 PO PRN (09:53)
[2018-08-04] MEDS: CENTRUM SILVER PO SCH (09:55)
[2018-08-04] MEDS: PLAVIX PO SCH (09:55)
[2018-08-04] MEDS: PAXIL PO SCH (09:55)
[2018-08-04] MEDS: LIPITOR PO SCH (09:56)
[2018-08-04] MEDS: PERICOLACE PO SCH (09:56)
[2018-08-04] MEDS: PRINIVIL PO SCH (09:56)
[2018-08-04] MEDS: TOPROL XL PO SCH (09:56)
[2018-08-04] MEDS: ICAR-C PO SCH (09:56)
[2018-08-04] MEDS: MIRALAX PO SCH (09:57)
[2018-08-04] MEDS: PROTONIX IV SCH (09:57)
[2018-08-04] MEDS: LOVENOX SUBQ SCH (09:57)
[2018-08-04] MEDS: AUGMENTIN LIQUID PO SCH (10:04)
[2018-08-04] MEDS: ASPIRIN PO SCH (10:09)
[2018-08-04] MEDS: MYCOSTATIN POWDER TOP SCH (10:10)
[2018-08-04] MEDS: LACTULOSE PO SCH (10:10)
[2018-08-04] MEDS ORDERED: FLU VACCINE IM ONE (15:00)
[2018-08-04 15:47] VITALS: BP 93/53
--- NOTE | 2018-08-05 12:00 | DISCHARGE SUMMARY ---
ADMISSION DATE: 07/11/2018 DISCHARGE DATE: 08/04/2018 PRINCIPAL DIAGNOSIS: Hypoxic respiratory failure. SECONDARY DIAGNOSES: 1. Aspiration pneumonia. 2. Dysphagia. 3. Anemia. 4. Benign prostatic hypertrophy. 5. Iron-deficiency anemia. 6. Hypothyroidism. 7. Coronary artery disease. 8. History of prostate cancer. DISCHARGE MEDICATIONS: Aspirin 81 mg p.o. daily. Atorvastatin 20 mg p.o. daily. Plavix 75 mg p.o. daily. Robitussin A-C 10 mL every 4 hours as needed. Icar C 1 p.o. twice a day. Imdur 30 mg p.o. at bedtime. Calmoseptine ointment as directed. Metoprolol ER 25 mg p.o. daily. Multivitamin 1 p.o. daily. Oxycodone/acetaminophen (Percocet) 1.5 three times a day as needed. Fiorella-Colace 2 twice a day. Tamsulosin 0.4 mg at bedtime. BuSpar 10 mg p.o. 3 times a day. Lisinopril 10 mg p.o. once a day. Paxil 20 mg p.o. daily. CONSULTATIONS DONE DURING THIS HOSPITAL STAY: [*] SANDHYA. Dr. Mario Wu, Pulmonology. Dr. Guillermo Reyez, ID. PROCEDURES DONE DURING THIS HOSPITAL STAY: Chest CT 07/16/2018. Echocardiogram 07/16/2018. Speech modified barium swallow 07/17/2018. EGD with dilatation 07/18/2018. HOSPITAL COURSE: Mr. Rashmi Charles is a 73-year-old male, who was initially seen at [facility] and was admitted with a history of cough, congestion and shortness of breath. The patient was thought to have bilateral lower lobe pneumonia and was placed on antibiotics. He was noted to have hypoxic respiratory distress in the setting of probable aspiration pneumonia. GI was consulted because of dysphagia. The patient subsequently had EGD with dilatation. He was subsequently placed on mechanical soft diet. The patient continues to have respiratory and has been on antibiotics for pneumonia. The patient was seen by the palliative care team and the plan is for him to go home with hospice care given his multiple medical problems. PLAN: Discharge to hospice care today. cc: Ramos Huddleston MD
== END 2018-08-04 17:54 | disposition hospice, home (50) | DRG 177 ==
LOC: P.ED 23:47 → SUATTDRO 07-11 02:09 → P.EDIPHOLD 07-11 02:09 → 4N 07-16 12:45 → 3S 07-28 09:57 → 4N 07-30 11:43
PROVIDERS: ATTEND Internal Medicine
CPT/HCPCS: 71010; 71020; 71045; 71046; 71250; 74022; 74230; 78582; 80048; 80053; 80074; 80202; 82550; 82553; 82784; 82805; 82948; 83605; 83735; 83880; 84100; 84145; 84443; 84484; 85025; 85027; 85379; 85651; 86038; 86039; 86140; 87040; 87070; 87205; 87275; 87276; 87324; 87804; 89220; 90686; 92611; 93005; 93010; 93306; 94640; 94660; 94667; 94668; 94761; 94762; 94799; 96365; 96367; 96375; 97110; 97162; 97530; 99285; 99291; A9270; A9539; A9540; C9113; J0456; J0692; J0696; J1650; J1940; J2270; J2405; J3370; J3475; J3480; J7040; J7050; S0164; XXXXX